=== PATIENT | female | born 1940 | race Caucasian/White ===

== ENCOUNTER 2020-12-20 15:46 | Outpatient (REF) | payer MEDICARE, SELFPAY ==
[2020-12-20 18:41] LABS: Iron 14 ug/dL (50-170); Total Iron Binding Capacity 378 ug/dL (250-450); Transferrin Sat 4 % (15-50)
[2020-12-20 19:05] LABS: Vitamin D 25 Total 36.9 ng/mL (30-100)
[2020-12-20 19:07] LABS: Anion Gap 7.6 mmol/L (3-11); BUN 17 mg/dL (7-18); CO2 28.4 mmol/L (21.0-32.0); CREATININE 1.1 mg/dL (0.55-1.02); Calcium 9.4 mg/dL (8.5-10.1); Chloride 107 mmol/L (98-107); Estimated GFR 47.91 (mL/min/1.73m2); Ferritin 9 ng/mL (8-252); Glucose 82 mg/dL (74-106); Magnesium 1.8 mg/dL (1.8-2.4); Potassium 4.6 mmol/L (3.5-5.1); Sodium 143 mmol/L (136-145); TSH (W/Ref FT4) 1.83 uIU/mL (0.36-3.74); Vitamin B12 292 pg/mL (193-986)
[2020-12-20 19:13] LABS: Abs Immature Grans 0.01 10^3/uL (0.0-0.06); Absolute Basophil Count 0.03 10^3/uL (0.0-0.2); Absolute Eosinophil Count 0.15 10^3/uL (0.0-0.7); Absolute Monocyte Count 0.75 10^3/uL (0.1-0.8); Basophils % 0.6; Eosinophils % 2.9; HCT 32.1 % (36.0-46.0); HGB 9.3 g/dL (11.2-15.7); Immature Grans % 0.2; Lymphocytes % 17.5; MCH 22.9 pg (27.0-33.0); MCV 79.1 fL (80-95); MPV 11.6 fL (8.0-11.0); Monocytes % 14.6; Neutrophils % 64.2; Nucleated RBC 0 %; Platelet Count 281 10^3/uL (130-400); RBC 4.06 10^6/uL (3.93-5.22); RDW 20.4 % (11.7-14.6); RDW-SD 57.8 fL; WBC 5.14 10^3/uL (4.4-10.8)
== END 2020-12-20 15:47 | disposition home or self-care (01) ==
LOC: LBN 15:46
PROVIDERS: Visit Provider Internal Medicine
DX: D64.9 Anemia, unspecified (principal); G20 Parkinson's disease; F33.40 Major depressive disorder, recurrent, in remission, unspecified; F02.81 Dementia in other diseases classified elsewhere, unspecified severity, with behavioral disturbance
CPT/HCPCS: 80048; 82306; 82607; 82728; 82746; 83036; 83540; 83550; 83735; 84443; 85025

== ENCOUNTER 2021-01-01 19:52 | Inpatient (IN) | payer OTHER, SELFPAY ==
[2021-01-01] VITALS (55 sets, daily range): BP systolic 101–203; BP diastolic 37–140; PULSE 63–95; RESP 12–25; TEMP 36.8; O2SAT 96–100
--- NOTE | 2021-01-01 19:45 | RT.EKG_ITS ---
APPROVED REPORT Exam: Resting ECG Reason for Exam: peter Patient Location: E HR:84 bpm ECG Measurements Heart Rate 84 AXIS HI 143 P 72 QRSd 80 QRS 56 QT 380 T 37 QTc 449 Conclusion Sinus rhythm...normal P axis, V-rate 60- 99 Physician: no stemi, intervals stable
--- NOTE | 2021-01-01 20:00 | DI.CT_ITS ---
Exam(s) CT HEAD CERV SPINE FACIAL WO EXAM: CT HEAD CERV SPINE FACIAL WO CLINICAL HISTORY: altered. TECHNIQUE: Imaging Protocol: Axial computed tomography images with coronal and sagittal reformatted images were created and reviewed COMPARISON: No exams were available for comparison FINDINGS: CT BRAIN: There are no skull fractures nor fluid in the visualized paranasal sinuses. There is no evidence of intracranial hemorrhage, mass effect, or shift of midline structures. There are no extra-axial fluid collections. There is no blood within the ventricular system nor within the basal cisterns. Size of the lateral ventricles is slightly prominent but commensurate with the size of the overlying cortical sulci. Vascular calcification is noted in both vertebral arteries at the skull base as well as within the internal carotid arteries. There is periventricular hypodensity consistent with chronic small vessel disease. Also small nonacu te appearing periventricular lacunar infarcts left side. CT MAXILLOFACIAL BONES: There is no evidence of facial fractures nor fluid in the visualized paranasal sinuses. there is no evidence of orbital blowout fracture. Patient is noted to be intubated. Also NG tube in place CT CERVICAL SPINE: There is no evidence of fracture nor listhesis. No significant prevertebral soft tissue swelling. N o facet malalignment evident. No significant osseous lesions evident. There is fusion of C 6 and C7 vertebral bodies anteriorly and there is also fusion of the facet joint s bilaterally at this level. In addition there is multilevel disc space narrowing at C4-5 and C5-6 l evels. Also seen is 7-T1. IMPRESSION: No acute intracranial findings on this noninfused CT scan of the brain. No evidence of facial nor orbital blowout fractures. No evidence of cervical spine fracture, malalignment, nor acute compromise of the cervical spinal can al. Chronic degenerative disc disease and degenerative changes noted in the cervical spine but no fr actures. Study 1st read by [facility] RADIATION DOSE DELIVERED: 1,861.06mGy.cm Total DLP DATA REPOSITORY: All CT scans at this facility are submitted to the National Radiology Data Registry (NRDR) Dose Index Registry (DIR) with the [employer] (A[employer]). RADIATION OPTIMIZATION: All CT scans at this facility use at least one of these dose optimization te chniques: automated exposure control; mA and/or kV adjustment per patient size (includes targeted exa ms where dose is matched to clinical indication); or iterative reconstruction.
--- NOTE | 2021-01-01 20:07 | DI.RAD_ITS ---
Exam(s) XR PORTABLE CHEST AP POST LINE EXAM: XR PORTABLE CHEST AP POST LINE CLINICAL HISTORY: post intubation. TECHNIQUE: 2D digital imaging was performed. COMPARISON: No exams were available for comparison FINDINGS: Distal tip of the endotracheal tube in satisfactory position above the haroldo. There is an NG tube i n place. Its distal tip is beyond the field of view of this chest x-ray. Heart size is upper normal. The mediastinum is not widened. Right hemidiaphragm is significantly elevated. However, there are no obvious infiltrates nor pleural effusions. No pneumothorax. IMPRESSION: Elevated right hemidiaphragm. No acute pulmonary findings. Endotracheal tube is in satisfactory position. DATA REPOSITORY: RADIATION DOSE DELIVERED: All CT scans at this facility use at least one of these dose optimization techniques: automated exposure control; mA and/or kV adjustment per patient size (includes targeted e xams where dose is matched to clinical indication); or iterative reconstruction.
[2021-01-01 20:16] LABS: Source Nasal/Nares
[2021-01-01 20:21] LABS: Lactate 1.2 mmol/L (0.6-1.4)
[2021-01-01 20:22] LABS: Abs Immature Grans 0.07 10^3/uL (0.0-0.06); Absolute Basophil Count 0.03 10^3/uL (0.0-0.2); Absolute Eosinophil Count 0.12 10^3/uL (0.0-0.7); Absolute Lymphocyte Count 1.23 10^3/uL (1.2-3.4); Absolute Monocyte Count 0.74 10^3/uL (0.1-0.8); Absolute Neutrophil Count 4.17 10^3/uL (1.2-6.7); Basophils % 0.5; Eosinophils % 1.9; HCT 32.2 % (36.0-46.0); HGB 9.7 g/dL (11.2-15.7); Immature Grans % 1.1; Lymphocytes % 19.3; MCH 24.4 pg (27.0-33.0); MCHC 30.1 % (32.0-36.0); MCV 81.1 fL (80-95); MPV 10.7 fL (8.0-11.0); Monocytes % 11.6; Neutrophils % 65.6; Nucleated RBC 0 %; Platelet Count 248 10^3/uL (130-400); RBC 3.97 10^6/uL (3.93-5.22); RDW 20.7 % (11.7-14.6); RDW-SD 61.1 fL; WBC 6.36 10^3/uL (4.4-10.8)
[2021-01-01] MEDS: Etomidate 20 MG/10 ML VIAL IVP (20:25)
[2021-01-01] MEDS: Rocuronium 50 MG/5 ML SYR 100 MG IVP (20:26)
--- NOTE | 2021-01-01 20:31 | NUR.NOTE ---
Nursing Note: Successful intubation: 7.5 ET tube-22 at teeth. Audible breath sounds via ascultation, condensation in ET tube, Direct visualization observed. Oral-gastric tube placed: measured and secured- 55 at lip. SEE MAR FOR MEDICATION ADMINISTERED PRIOR TO INTUBATION.
[2021-01-01 20:46] LABS: Bilirubin Negative (Negative); Blood Negative (Negative); Clarity Clear (Clear); Glucose Negative (Negative); Ketones Trace mg/dL (Negative); Leukocyte Esterase Negative (Negative); Nitrite Negative (Negative); Specific Gravity >= 1.030 (1.005-1.025); Urobilinogen 0.2 EU/dL (Up TO 0.2)
[2021-01-01] MEDS: PROPOFOL 1,000 MG/100 ML BTL 10.7 MG (20:46)
--- NOTE | 2021-01-01 20:47 | NUR.NOTE ---
Nursing Note: Propofol started at 20:30.
[2021-01-01 20:53] LABS: Ammonia < 10 umol/L (11-32)
[2021-01-01 20:54] LABS: Troponin I < 0.05 ng/mL (<0.06)
[2021-01-01 20:55] LABS: ALT 8 U/L (14-59); AST 11 U/L (15-37); Albumin 3.2 g/dL (3.4-5.0); Alkaline Phosphatase 100 U/L (46-116); Anion Gap 7.4 mmol/L (3-11); BUN 16 mg/dL (7-18); Bilirubin, Total 0.4 mg/dL (0.2-1.0); CO2 27.6 mmol/L (21.0-32.0); CREATININE 1.2 mg/dL (0.55-1.02); Calcium 9.4 mg/dL (8.5-10.1); Chloride 107 mmol/L (98-107); Estimated GFR 43.34 (mL/min/1.73m2); Glucose 163 mg/dL (74-106); Potassium 3.7 mmol/L (3.5-5.1); Sodium 142 mmol/L (136-145); TSH (W/Ref FT4) 1.84 uIU/mL (0.36-3.74); Total Protein 6.4 g/dL (6.4-8.2)
[2021-01-01 20:57] LABS: Epithelial Cells Moderate HPF (Negative)
[2021-01-01 20:58] LABS: Bacteria Rare HPF (Negative); C & S Indicated? No/Sq. Contamination; Crystals Negative HPF (Negative); Mucus Heavy (Negative)
[2021-01-01 21:01] LABS: BE 0 mmol/L (-2-3); HCO3 25 mmol/L (22-26); pCO2 41 mmHg (35-45); pO2 170 mmHg (80-105)
[2021-01-01] MEDS: Normal Saline 1,000 ML 150 ML IV (21:03)
[2021-01-01 21:04] LABS: Site Left Radial; sO2 > 99 % (95-98)
[2021-01-01 21:05] LABS: FIO2 40 %
--- NOTE | 2021-01-01 21:17 | W.ED.GENAD ---
Discharge Plan Disposition Patient Disposition: [facility] INPATIENT Condition: Serious Discharge Details Clinical Impression: Altered mental status, Respiratory failure, Drug-induced encephalopathy Primary Care Provider: Unknown,Unknown ED Provider: Anatoly Samson Home Meds and New Rx's Prescriptions: No Action olanzapine [Zyprexa] 10 mg Tablet 10 mg PO QHS RF: 0 quetiapine [Seroquel] 200 mg Tablet 200 mg PO QHS RF: 0 cyanocobalamin (vitamin B-12) 1,000 mcg Tablet 1,000 mcg PO DAILY RF: 0 acetaminophen 650 mg Tablet 650 mg PO Q6H PRN (Reason: Fever Or Pain) RF: 0 ascorbic acid (vitamin C) 500 mg Tablet 500 mg PO BID RF: 0 carboxymethylcellulose sodium [Refresh Tears] 0.5 % Drops 1 drp OPHTHALMIC (EYE) HS RF: 0 ferrous sulfate 325 mg (65 mg iron) Tablet 325 mg PO BID RF: 0 folic acid 1 mg Tablet 1 mg PO DAILY RF: 0 lorazepam [Ativan] 1 mg Tablet 1 mg PO TID RF: 0 carbidopa-levodopa 25-100 mg Tablet 1 tab PO TID RF: 0 duloxetine 60 mg Capsule, Delayed Rel Sprinkle 60 mg PO BID RF: 0 Medical Decision Making 80-year-old female with a past medical history of Parkinson's, dementia, who currently resides at the [facility], presents today for evaluation of altered mental status. The [facility] states that after she was given her nighttime medication she became altered and lethargic and hypoxic. Oxygenation was in the 70s. EMS started her on 15 L nonrebreather which brought her up to the high 90s, and brought her in for further assessment. Glucose levels unremarkable. GCS was 9 upon arrival. EMS gives no additional history. Patient is otherwise unresponsive with no other complaints at this time. Physical exam demonstrates a GCS of 9, no gag reflex is present, patient is able to move all extremities, I cannot appreciate any other focal neurologic deficits at this time, however the patient is notably altered. With the patient absent gag reflex, and GCS of 9 there is a notable indication for intubation. She seems to be saturating well on the nonrebreather at this time. I did contact the patient's and discussed the patient wishes for heroic measures. Patient's paperwork as well as her both state the desire for intubation if indicated. Patient was intubated without complication. Differential includes metabolic encephalitis, less likely stroke, or iatrogenic cause from his medications. We will get a CT scan of the head, evaluate for these etiologies, monitor closely and reassess. Patient has no nuchal rigidity, no fever, symptoms appear inconsistent with meningitis or infectious encephalitis at this time. 10:54 PM Laboratory work-up is returned relatively unremarkable, no white count bandemia or left shift. Hemoglobin is 9.7, does not appear to be an acute change from previous lab. ABG stable, electrolytes normal, creatinine 1.2, GFR 43, ammonia level negative, troponin normal, thyroid function good. Urinalysis shows no clear evidence of urinary tract infection. Moderate epithelial cells are present with 5-10 WBCs. No leuk esterase, negative nitrites. ABG does not show significant elevation of PCO2. Suspect that the patient's initial hypoxemia was secondary to encephalopathy and obtundation. X-ray shows no evidence of pneumonia or other abnormality, and oxygenation has been notably stable here post intubation. CT scan of the head is negative for acute process, no evidence of stroke or fracture. At this time suspect iatrogenic cause of the patient's encephalopathy, likely medication related. Patient remained stable on ventilator and with sedation. Covid test negative. Will recommend admission for continued evaluation monitoring and management. EKG stable, troponin negative. 11:41 PM Discussed the case with the hospitalist Dr. Vazquez, he agrees with the assessment and plan. I will place admission orders on his behalf. I have extensively reviewed the treatment plan with the patient. I have addressed all patient concerns at this time. I have also discussed the plan with the admitting physician and they agree with the current assessment and plan and have agreed to assume responsibility for the patient. All parties demonstrate verbal understanding and agreement with our assessment and plan at this time. The documentation in this chart was dictated using [employer] dictation software. Please excuse any dictation errors. FINDINGS: Endotracheal tube tip 2.6 cm above the haroldo. Enteric tube below the diaphragm projecting to the right of midline tip not visualized Elevated right hemidiaphragm Lungs: No consolidation. Pleural spaces: No pleural effusion. No pneumothorax. Heart/Mediastinum: Mildly tortuous aorta. No cardiomegaly. Bones/joints: Unremarkable. IMPRESSION: Tubes as described Elevated right hemidiaphragm. No focal consolidation Thank you for allowing us to participate in the care of your patient. Dictated and Authenticated by: Stan Thapa MD 01/01/2021 10:26 PM Eastern Time ([place] & [place]) FINDINGS: Brain: Chronic left basal ganglia lacunar infarctions No hemorrhage. Mild white matter disease. No mass effect. Cerebral ventricles: No ventriculomegaly. Paranasal sinuses: Visualized sinuses are unremarkable. No fluid levels. Mastoid air cells: Visualized mastoid air cells are well aerated. Bones/joints: Unremarkable. No acute fracture. Soft tissues: Unremarkable. IMPRESSION: No acute intracranial hemorrhage FINDINGS: Orbital cavity: Orbits are normal. Globes are unremarkable. Bones/joints: No acute fracture. Paranasal sinuses: Minimal mucosal thickening No air-fluid levels. Soft tissues: Calcifications in the right paranasal tissues IMPRESSION: No acute fracture noted FINDINGS: Bones/joints: No acute fracture. Loss of cervical lordosis is presumably on a degenerative basis. Prior fusion at C6-C7. Discs/Spinal canal/Neural foramina: No significant spinal canal stenosis. Right sided foraminal stenosis at C2-C3, C3-C4 and C4-C5 Lungs: Lung apices are grossly clear Soft tissues: Limited evaluation of the prevertebral soft tissues are secondary to nasogastric intubation. Endotracheal tube partially visualized IMPRESSION: No acute cervical fracture noted Thank you for allowing us to participate in the care of your patient. Dictated and Authenticated by: Stan Thapa MD 01/01/2021 10:15 PM Eastern Time ([place] & [place]) HPI General Date/Time Provider Initiated Documentation: 01/01/21 20:53. HPI Narrative: 80-year-old female with a past medical history of Parkinson's, dementia, who currently resides at the [facility], presents today for evaluation of altered mental status. The [facility] states that after she was given her nighttime medication she became altered and lethargic and hypoxic. Oxygenation was in the 70s. EMS started her on 15 L nonrebreather which brought her up to the high 90s, and brought her in for further assessment. Glucose levels unremarkable. GCS was 9 upon arrival. EMS gives no additional history. Patient is otherwise unresponsive with no other complaints at this time. Related Data Home Medications Medication Instructions Recorded Confirmed acetaminophen 650 mg PO Q6H PRN 01/01/21 01/01/21 ascorbic acid (vitamin C) 500 mg PO BID 01/01/21 01/01/21 carbidopa-levodopa 1 tab PO TID 01/01/21 01/01/21 carboxymethylcellulose sodium 1 drp OPHTHALMIC (EYE) HS 01/01/21 01/01/21 [Refresh Tears] cyanocobalamin (vitamin B-12) 1,000 mcg PO DAILY 01/01/21 01/01/21 duloxetine 60 mg PO BID 01/01/21 01/01/21 ferrous sulfate 325 mg PO BID 01/01/21 01/01/21 folic acid 1 mg PO DAILY 01/01/21 01/01/21 lorazepam [Ativan] 1 mg PO TID 01/01/21 01/01/21 olanzapine [Zyprexa] 10 mg PO QHS 01/01/21 01/01/21 quetiapine [Seroquel] 200 mg PO QHS 01/01/21 01/01/21 Allergies Allergy/AdvReac Type Severity Reaction Status Date / Time clarithromycin Allergy Unverified 01/01/21 20:54 mold Allergy Unverified 01/01/21 20:54 General Stated Complaint: RespSymp ESPERANZA: 2 Review of Systems All systems reviewed & are unremarkable except as noted in HPI and below PFSH Social History Smoking/Tobacco Use Status: Unknown Smoking risk assessment performed?: Yes Additional Social history: unable to assess. Exam Narrative Exam Narrative: 1.Const: Well-nourished, Well-developed, appearing stated age 2.Eyes: PERRL, no conjunctival injection, and symmetrical lids. 3.ENT: Atraumatic external nose and ears. Moist MM. Neck: Symmetric, trachea midline, No thyromegaly. 4.CVS: +S1/S2, No murmurs or gallops. Peripheral pulses 2+ and equal in all extremities. Brisk capillary refill in all extremities. 5.RESP: Minimal respiratory effort, no significant crackles or rhonchi. Diminished breath sounds throughout. No wheezes. 6.GI: Soft, Nontender/Nondistended, No hepatosplenomegaly. No guarding or rebound. 7.MSK: Normocephalic/Atraumatic, Extremities w/o deformity or ttp No cyanosis or clubbing, patient is able to move both upper and lower extremities with significant painful stimulation. 8.Skin: Warm, Dry. No rashes or lesions. No decubitus ulcers. 9.Neuro: GCS is 9, secondary to incomprehensible sounds, localizing to pain, no eye movements otherwise but is open to painful stimuli. No gag reflex present on exam with tongue depressor Course Vital Signs Vital signs: Vital Signs Temperature 36.8 C 01/01/21 19:54 Pulse 78 01/01/21 19:54 Respiratory Rate 16 01/01/21 19:54 Blood Pressure 125/55 L 01/01/21 19:54 Pulse Oximetry 100 01/01/21 19:54 Temperature 36.8 C 01/01/21 19:54 Temperature Source Tympanic 01/01/21 19:54 Pulse 74 01/01/21 21:11 Pulse 76 01/01/21 21:11 Respiratory Rate 15 01/01/21 21:11 Respiratory Effort 01/01/21 20:08 Respiratory Depth Shallow 01/01/21 20:08 Respiratory Pattern Normal 01/01/21 20:08 Blood Pressure 143/66 H 01/01/21 21:11 Blood Pressure Mean 82 01/01/21 21:11 Blood Pressure Position Sitting 01/01/21 19:54 Pulse Oximetry 100 01/01/21 21:11 Respiratory End-tidal CO2 38 01/01/21 20:36 Oxygen Delivery Method Non-Rebreather 01/01/21 19:54 Lab/Test Results Lab/Test Results: 01/01/21 20:49 Nasopharynx Influenza Types A,B Antigen - Pending 01/01/21 20:07 Blood Blood Culture - Pending 01/01/21 20:07 Blood Blood Culture - Pending Laboratory Tests Range/Units 01/01/21 01/01/21 01/01/21 20:10 20:10 20:10 WBC (4.4-10.8) 10^3/uL RBC (3.93-5.22) 10^6/uL Hgb (11.2-15.7) g/dL Hct (36.0-46.0) % MCV (80-95) fL MCH (27.0-33.0) pg MCHC (32.0-36.0) % RDW (11.7-14.6) % Plt Count (130-400) 10^3/uL MPV (8.0-11.0) fL Immature Gran % Neutrophils % Lymphocytes % Monocytes % Eosinophils % Basophils % Nucleated RBC % % Absolute Neutrophils (1.2-6.7) 10^3/uL Absolute Lymphocytes (1.2-3.4) 10^3/uL Absolute Monocytes (0.1-0.8) 10^3/uL Absolute Eosinophils (0.0-0.7) 10^3/uL Absolute Basophils (0.0-0.2) 10^3/uL ABG Sample Site ABG pH (7.35-7.45) ABG pCO2 (35-45) mmHg ABG pO2 (80-105) mmHg ABG HCO3 (22-26) mmol/L ABG Total CO2 (23-27) mmol/L ABG O2 Saturation (95-98) % ABG Base Excess (-2-3) mmol/L VBG Lactate (0.6-1.4) mmol/L Oxygen Liter Flow L FiO2 % Sodium (136-145) mmol/L Potassium (3.5-5.1) mmol/L Chloride (98-107) mmol/L Carbon Dioxide (21.0-32.0) mmol/L Anion Gap (3-11) mmol/L BUN (7-18) mg/dL Creatinine (0.55-1.02) mg/dL Estimated GFR/1.73 m2 (mL/min/1.73m2) Glucose (74-106) mg/dL Calcium (8.5-10.1) mg/dL Total Bilirubin (0.2-1.0) mg/dL AST (15-37) U/L ALT (14-59) U/L Alkaline Phosphatase (46-116) U/L Ammonia (11-32) umol/L < 10 L Troponin I (<0.06) ng/mL < 0.05 Total Protein (6.4-8.2) g/dL Albumin (3.4-5.0) g/dL TSH (0.36-3.74) uIU/mL Urine Color (Yellow) Urine Clarity (Clear) Urine pH (5-8) Ur Specific Hardy (1.005-1.025) Urine Protein (Negative) mg/dL Urine Ketones (Negative) mg/dL Urine Blood (Negative) Urine Nitrite (Negative) Urine Bilirubin (Negative) Urine Urobilinogen (Up TO 0.2) EU/dL Ur Leukocyte Esterase (Negative) Urine RBC (0-2) HPF Urine WBC (0-5) HPF Ur Epithelial Cells (Negative) HPF Urine Crystals (Negative) HPF Urine Bacteria (Negative) HPF Urine Mucus (Negative) Ur Culture Indicated? Urine Glucose (Negative) mg/dL COVID-19 Source Nasal/Nares Range/Units 01/01/21 01/01/21 01/01/21 20:10 20:10 20:10 WBC (4.4-10.8) 10^3/uL 6.36 RBC (3.93-5.22) 10^6/uL 3.97 Hgb (11.2-15.7) g/dL 9.7 L Hct (36.0-46.0) % 32.2 L MCV (80-95) fL 81.1 MCH (27.0-33.0) pg 24.4 L MCHC (32.0-36.0) % 30.1 L RDW (11.7-14.6) % 20.7 H Plt Count (130-400) 10^3/uL 248 MPV (8.0-11.0) fL 10.7 Immature Gran % 1.1 Neutrophils % 65.6 Lymphocytes % 19.3 Monocytes % 11.6 Eosinophils % 1.9 Basophils % 0.5 Nucleated RBC % % 0 Absolute Neutrophils (1.2-6.7) 10^3/uL 4.17 Absolute Lymphocytes (1.2-3.4) 10^3/uL 1.23 Absolute Monocytes (0.1-0.8) 10^3/uL 0.74 Absolute Eosinophils (0.0-0.7) 10^3/uL 0.12 Absolute Basophils (0.0-0.2) 10^3/uL 0.03 ABG Sample Site ABG pH (7.35-7.45) ABG pCO2 (35-45) mmHg ABG pO2 (80-105) mmHg ABG HCO3 (22-26) mmol/L ABG Total CO2 (23-27) mmol/L ABG O2 Saturation (95-98) % ABG Base Excess (-2-3) mmol/L VBG Lactate (0.6-1.4) mmol/L 1.2 Oxygen Liter Flow L FiO2 % Sodium (136-145) mmol/L 142 Potassium (3.5-5.1) mmol/L 3.7 Chloride (98-107) mmol/L 107 Carbon Dioxide (21.0-32.0) mmol/L 27.6 Anion Gap (3-11) mmol/L 7.4 BUN (7-18) mg/dL 16 Creatinine (0.55-1.02) mg/dL 1.2 H Estimated GFR/1.73 m2 (mL/min/1.73m2) 43.34 Glucose (74-106) mg/dL 163 H Calcium (8.5-10.1) mg/dL 9.4 Total Bilirubin (0.2-1.0) mg/dL 0.4 AST (15-37) U/L 11 L ALT (14-59) U/L 8 L Alkaline Phosphatase (46-116) U/L 100 Ammonia (11-32) umol/L Troponin I (<0.06) ng/mL Total Protein (6.4-8.2) g/dL 6.4 Albumin (3.4-5.0) g/dL 3.2 L TSH (0.36-3.74) uIU/mL 1.84 Urine Color (Yellow) Urine Clarity (Clear) Urine pH (5-8) Ur Specific Hardy (1.005-1.025) Urine Protein (Negative) mg/dL Urine Ketones (Negative) mg/dL Urine Blood (Negative) Urine Nitrite (Negative) Urine Bilirubin (Negative) Urine Urobilinogen (Up TO 0.2) EU/dL Ur Leukocyte Esterase (Negative) Urine RBC (0-2) HPF Urine WBC (0-5) HPF Ur Epithelial Cells (Negative) HPF Urine Crystals (Negative) HPF Urine Bacteria (Negative) HPF Urine Mucus (Negative) Ur Culture Indicated? Urine Glucose (Negative) mg/dL COVID-19 Source Range/Units 01/01/21 01/01/21 20:37 21:00 WBC (4.4-10.8) 10^3/uL RBC (3.93-5.22) 10^6/uL Hgb (11.2-15.7) g/dL Hct (36.0-46.0) % MCV (80-95) fL MCH (27.0-33.0) pg MCHC (32.0-36.0) % RDW (11.7-14.6) % Plt Count (130-400) 10^3/uL MPV (8.0-11.0) fL Immature Gran % Neutrophils % Lymphocytes % Monocytes % Eosinophils % Basophils % Nucleated RBC % % Absolute Neutrophils (1.2-6.7) 10^3/uL Absolute Lymphocytes (1.2-3.4) 10^3/uL Absolute Monocytes (0.1-0.8) 10^3/uL Absolute Eosinophils (0.0-0.7) 10^3/uL Absolute Basophils (0.0-0.2) 10^3/uL ABG Sample Site Left Radial ABG pH (7.35-7.45) 7.40 ABG pCO2 (35-45) mmHg 41 ABG pO2 (80-105) mmHg 170 H ABG HCO3 (22-26) mmol/L 25 ABG Total CO2 (23-27) mmol/L ABG O2 Saturation (95-98) % > 99 H ABG Base Excess (-2-3) mmol/L 0 VBG Lactate (0.6-1.4) mmol/L Oxygen Liter Flow L CMV VT360/R15/P5 FiO2 % 40 Sodium (136-145) mmol/L Potassium (3.5-5.1) mmol/L Chloride (98-107) mmol/L Carbon Dioxide (21.0-32.0) mmol/L Anion Gap (3-11) mmol/L BUN (7-18) mg/dL Creatinine (0.55-1.02) mg/dL Estimated GFR/1.73 m2 (mL/min/1.73m2) Glucose (74-106) mg/dL Calcium (8.5-10.1) mg/dL Total Bilirubin (0.2-1.0) mg/dL AST (15-37) U/L ALT (14-59) U/L Alkaline Phosphatase (46-116) U/L Ammonia (11-32) umol/L Troponin I (<0.06) ng/mL Total Protein (6.4-8.2) g/dL Albumin (3.4-5.0) g/dL TSH (0.36-3.74) uIU/mL Urine Color (Yellow) Yellow Urine Clarity (Clear) Clear Urine pH (5-8) 6.0 Ur Specific Hardy (1.005-1.025) >= 1.030 H Urine Protein (Negative) mg/dL 30 H Urine Ketones (Negative) mg/dL Trace H Urine Blood (Negative) Negative Urine Nitrite (Negative) Negative Urine Bilirubin (Negative) Negative Urine Urobilinogen (Up TO 0.2) EU/dL 0.2 Ur Leukocyte Esterase (Negative) Negative Urine RBC (0-2) HPF 3-5 H Urine WBC (0-5) HPF 5-10 Ur Epithelial Cells (Negative) HPF Moderate Urine Crystals (Negative) HPF Negative Urine Bacteria (Negative) HPF Rare Urine Mucus (Negative) Heavy Ur Culture Indicated? No/Sq. Contamination Urine Glucose (Negative) mg/dL Negative COVID-19 Source Critical Care Time Critical Care Time Critical Care Time: Yes Total Critical Care Time: 45 Attestation: Upon my evaluation, this patient had a high probability of imminent or life-threatening deterioration, which required my direct attention, intervention, and personal management. I have personally provided 45 minutes of critical care time exclusive of time spent on separately billable procedures. Time includes review of laboratory data, radiology results, discussion with consultants, and monitoring for potential decompensation. Interventions were performed as documented.
[2021-01-01 21:22] LABS: COVID-19 PCR Negative (Negative)
--- NOTE | 2021-01-01 22:16 | DI.VRAD_ITS ---
PROCEDURE INFORMATION: Exam: CT Head Without Contrast Exam date and time: 01/01/2021 9:43 PM Age: 80 years old Clinical indication: Patient HX: Altered, intubated TECHNIQUE: Imaging protocol: Computed tomography of the head without contrast. Radiation optimization: All CT scans at this facility use at least one of these dose optimization techniques: automated exposure control; mA and/or kV adjustment per patient size (includes targeted exams where dose is matched to clinical indication); or iterative reconstruction. COMPARISON: CR XR PORTABLE CHEST AP POST LINE 01/01/2021 8:58 PM FINDINGS: Brain: Chronic left basal ganglia lacunar infarctions No hemorrhage. Mild white matter disease. No mass effect. Cerebral ventricles: No ventriculomegaly. Paranasal sinuses: Visualized sinuses are unremarkable. No fluid levels. Mastoid air cells: Visualized mastoid air cells are well aerated. Bones/joints: Unremarkable. No acute fracture. Soft tissues: Unremarkable. IMPRESSION: No acute intracranial hemorrhage PROCEDURE INFORMATION: Exam: CT Maxillofacial Without Contrast Exam date and time: 01/01/2021 9:43 PM Age: 80 years old Clinical indication: Patient HX: Altered, intubated TECHNIQUE: Imaging protocol: Computed tomography images of the face without contrast. Radiation optimization: All CT scans at this facility use at least one of these dose optimization techniques: automated exposure control; mA and/or kV adjustment per patient size (includes targeted exams where dose is matched to clinical indication); or iterative reconstruction. COMPARISON: CR XR PORTABLE CHEST AP POST LINE 01/01/2021 8:58 PM FINDINGS: Orbital cavity: Orbits are normal. Globes are unremarkable. Bones/joints: No acute fracture. Paranasal sinuses: Minimal mucosal thickening No air-fluid levels. Soft tissues: Calcifications in the right paranasal tissues IMPRESSION: No acute fracture noted PROCEDURE INFORMATION: Exam: CT Cervical Spine Without Contrast Exam date and time: 01/01/2021 9:43 PM Age: 80 years old Clinical indication: Patient HX: Altered, intubated TECHNIQUE: Imaging protocol: Computed tomography images of the cervical spine without contrast. Radiation optimization: All CT scans at this facility use at least one of these dose optimization techniques: automated exposure control; mA and/or kV adjustment per patient size (includes targeted exams where dose is matched to clinical indication); or iterative reconstruction. COMPARISON: CR XR PORTABLE CHEST AP POST LINE 01/01/2021 8:58 PM FINDINGS: Bones/joints: No acute fracture. Loss of cervical lordosis is presumably on a degenerative basis. Prior fusion at C6-C7. Discs/Spinal canal/Neural foramina: No significant spinal canal stenosis. Right sided foraminal stenosis at C2-C3, C3-C4 and C4-C5 Lungs: Lung apices are grossly clear Soft tissues: Limited evaluation of the prevertebral soft tissues are secondary to nasogastric intubation. Endotracheal tube partially visualized IMPRESSION: No acute cervical fracture noted Dictated and Authenticated by: Stan Thapa MD. Ordering:TIGRE Ledbetter MD
--- NOTE | 2021-01-01 22:26 | DI.VRAD_ITS ---
PROCEDURE INFORMATION: Exam: XR Chest Exam date and time: 01/01/2021 8:17 PM Age: 80 years old Clinical indication: Other: Post intubation TECHNIQUE: Imaging protocol: XR of the chest. Views: 1 view. COMPARISON: No relevant prior studies available. FINDINGS: Endotracheal tube tip 2.6 cm above the haroldo. Enteric tube below the diaphragm projecting to the right of midline tip not visualized Elevated right hemidiaphragm Lungs: No consolidation. Pleural spaces: No pleural effusion. No pneumothorax. Heart/Mediastinum: Mildly tortuous aorta. No cardiomegaly. Bones/joints: Unremarkable. IMPRESSION: Tubes as described Elevated right hemidiaphragm. No focal consolidation Dictated and Authenticated by: Stan Thapa MD. Ordering:TIGRE Ledbetter MD
--- NOTE | 2021-01-01 23:24 | HPE_ITS ---
Date of service: 01/01/21 Time of Service: 23:24 Assessment and Plan Assessment and plan (1) Respiratory failure: Status: Acute Assessment and plan: Continue mechanical ventilation while allowing her se dating medications to wear off. Use Lovenox for DVT prophylaxis and Protonix for GI prophylaxis. Consult with pulmonary/critical care medicine in the morning. Avoid IV fluids as the patient is not exhibiting signs of dehydration or azotemia. CC time 45 minutes including discussion w/ ER attending, Dr. Samson and reviewing chart, putting in orders, examination of patient and discussion w/ nursing regarding goals of care. Qualifiers: Chronicity: acute Respiratory failure complication: hypoxia Qualified Code(s): J96.01 - Acute respiratory failure with hypoxia (2) Altered mental status: Status: Acute Assessment and plan: Presumed secondary to medications as there is no evidence of [employer] trauma and no focal signs of seizure or focal signs of stroke. Qualifiers: Altered mental status type: coma Coma depth: [place] coma 3-8 Coma timing: at arrival to emergency department Qualified Code(s): R40.2432 - [place] coma scale score 3-8, at arrival to emergency department (3) Drug-induced encephalopathy: Status: Acute Assessment and plan: Avoid sedatives and continue supportive care with mechanical ventilation. If no improvement by morning consider further [employer]BER[employer] evaluation. Patient was put on Diprivan drip by ER post intubation. I have asked nursing to keep very light sedations i.e. RASS 0 to -1 History of Present Illness History of Present Illness Chief Complaint: acute hypoxic respiratory failure Narrative: 80-year-old white female resident of the [facility] in [place] who has a past medical history of Parkinson's disease, dementia who was brought to the emergency department from the [facility] after being found to be hypoxic and lethargic. Oxygen saturation was stated to be in the 70s and patient was started on 15 L nonrebreather mask by EMS and the patient's oxygen saturation came up into the high 90s. On arrival to emergency department her GCS score was 9 the patient was unresponsive. Per ER physicians evaluation patient had no gag reflex but will withdraw her extremities to noxious stimulation. She seemed to be holding her oxygen saturation on a nonrebreather mask and her GCS score remained 9. Patient's was contacted who indicated that the patient would want intubation and mechanical ventilation if needed. Because of her altered mental status and inability to protect her airway and ongoing hypoxic respiratory failure patient was intubated without complications by the ER physician. Presumed cause of her acute respiratory failure and hypoxemia is medication induced. Patient takes a number of medications for her dementia as well as her parkinsonism. She is on duloxetine, lorazepam, Zyprexa, Seroquel, carbidopa/levodopa. CT of the head without contrast showed no acute intracranial hemorrhage. She has chronic left basal ganglier lacunar infarcts and mild white matter disease but no mass-effect or hemorrhage. No ventriculomegaly. Paranasal sinuses showed no fluid air levels. Soft tissues were unremarkable. Orbital cavity showed no fractures. CT of the neck showed no cervical fractures. 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 Post intubation chest x-ray showed ET tip at 2.6 cm above the haroldo and the enteric tube was below the diaphragm projecting to the right of midline. Lung showed no consolidation and there is no pleural effusion no pneumothorax and no cardiomegaly. Routine labs include a CBC that shows a stable chronic anemia with a hemoglobin 9.7 g, hematocrit 32%, platelet count of 248,000 with no leukocytosis. CMP shows a mildly elevated creatinine 1.2 glucose 163, LFTs normal. Troponin I less than 0.05 and TSH 1.84. Blood gas post intubation demonstrated pH 7.40 PCO2 41 PO2 170 bicarbonate 25 O2 saturation greater than 8%. She reportedly was on assist control with tidal volume of 360 mL respiratory rate set at 15 with 5 cm of PEEP. Patient be admitted to the intensive care unit for treatment acute hypoxic re spiratory failure secondary to sedating medications. Pulmonary/critical care medicine consult be obtained in the morning. Patient be placed on DVT and GI prophylaxis. As the patient is not showing laboratory evidence of any dehydration/prerenal azotemia and her creatinine is at her baseline do not feel that she needs any IV fluids and avoidance of any excess volume would assist with weaning and extubation. Her nasal PCR for SARS-CoV-2 was negative. Review of Systems Unobtainable due to mental status [facility] Social History Smoking/Tobacco Use Status: Unknown Smoking risk assessment performed?: Yes Additional Social history: unable to assess. Meds Allergies and Home Medications Allergies Allergy/AdvReac Type Severity Reaction Status Date / Time clarithromycin Allergy Unverified 01/01/21 20:54 mold Allergy Unverified 01/01/21 20:54 Home Medications Medication Instructions Recorded Confirmed Type acetaminophen 650 mg PO Q6H PRN 01/01/21 01/01/21 History ascorbic acid (vitamin C) 500 mg PO BID 01/01/21 01/01/21 History carbidopa-levodopa 1 tab PO TID 01/01/21 01/01/21 History carboxymethylcellulose sodium 1 drp OPHTHALMIC (EYE) HS 01/01/21 01/01/21 History [Refresh Tears] cyanocobalamin (vitamin B-12) 1,000 mcg PO DAILY 01/01/21 01/01/21 History duloxetine 60 mg PO BID 01/01/21 01/01/21 History ferrous sulfate 325 mg PO BID 01/01/21 01/01/21 History folic acid 1 mg PO DAILY 01/01/21 01/01/21 History lorazepam [Ativan] 1 mg PO TID 01/01/21 01/01/21 History olanzapine [Zyprexa] 10 mg PO QHS 01/01/21 01/01/21 History quetiapine [Seroquel] 200 mg PO QHS 01/01/21 01/01/21 History Exam Const General: lethargic Nutritional Appearance: average body habitus Orientation: obtunded Limitations: altered mental status [facility] Head: normal to inspection, no palpable skull fracture, normocephalic and atraumatic Ears: external ears normal General nose exam: external nose normal Face and sinus: normal facial exam Mouth: oral mucosae normal Teeth and gingiva: poor dentition Eyes General: appearance normal, both eyes and all related structures Alignment and Position: alignment normal Periorbital: periorbital findings normal Eyelids: eyelids normal Conjunctivae: conjunctivae normal Sclera: sclerae normal Cornea: corneas normal Pupils: PERRL Neck Neck: normal visual inspection, no lymphadenopathy, trachea midline, supple and no JVD Thyroid: thyroid normal Carotids: normal carotid upstroke Lymphatic: no lymphadenopathy noted Chest Chest: normal inspection of the chest Resp Effort & Inspection: normal respiratory effort Auscultation: clear to auscultation bilaterally Cardio Jugular venous pressure: no JVD Palpation: normal PMI Rate: regular rate Rhythm: regular rhythm Heart Sounds: S1 normal, S2 normal and normal, physiologic split S2 Pulses: normal peripheral pulses GI Inspection: normal to inspection Palpation: soft and no hepatosplenomegaly Percussion: normal to percussion Auscultation: normal bowel sounds Skin General skin exam: no rashes or lesions noted and ecchymosis (left leg) Rashes: no rashes Neuro General: moves all extremities (withdraws to tactile stimulus) and patient obtunded Cranial Nerves: PERRL, tongue midline and abnormal gag reflex Cognition: abnormal cognition Motor: muscle tone normal throughout Plantar Reflexes: Downgoing: bilateral Pupils: Normal pupillary reactivity/response: bilateral and Dilated: bilateral Extrem General: normal to inspection, capillary refill normal, no clubbing, cyanosis or edema and no pedal edema Psych Appearance: grossly normal Mental Status: other Speech and Movement: other Mood: other Affect: other Attitude: other Thought Process: other Insight: other Judgment: other Other: patient is obtunded, she is sedated on Diprivan drip and her mental status can not be adequately assessed Results Labs Result diagrams: 01/01/21 20:10 01/01/21 20:10 Labs: Laboratory Results - last 24 hr 01/01/21 01/01/21 01/01/21 20:10 20:10 20:10 WBC RBC Hgb Hct MCV MCH MCHC RDW Plt Count MPV Immature Gran % Neutrophils % Lymphocytes % Monocytes % Eosinophils % Basophils % Nucleated RBC % Absolute Neutrophils Absolute Lymphocytes Absolute Monocytes Absolute Eosinophils Absolute Basophils ABG Sample Site ABG pH ABG pCO2 ABG pO2 ABG HCO3 ABG Total CO2 ABG O2 Saturation ABG Base Excess VBG Lactate Oxygen Liter Flow FiO2 Sodium Potassium Chloride Carbon Dioxide Anion Gap BUN Creatinine Estimated GFR/1.73 m2 Glucose Calcium Total Bilirubin AST ALT Alkaline Phosphatase Ammonia < 10 L Troponin I < 0.05 Total Protein Albumin TSH Urine Color Urine Clarity Urine pH Ur Specific [place] Urine Protein Urine Ketones Urine Blood Urine Nitrite Urine Bilirubin Urine Urobilinogen Ur Leukocyte Esterase Urine RBC Urine WBC Ur Epithelial Cells Urine Crystals Urine Bacteria Urine Mucus Ur Culture Indicated? Urine Glucose COVID-19 Source Nasal/Nares SARS-CoV-2 (PCR) Negative 01/01/21 01/01/21 01/01/21 20:10 20:10 20:10 WBC 6.36 RBC 3.97 Hgb 9.7 L Hct 32.2 L MCV 81.1 MCH 24.4 L MCHC 30.1 L RDW 20.7 H Plt Count 248 MPV 10.7 Immature Gran % 1.1 Neutrophils % 65.6 Lymphocytes % 19.3 Monocytes % 11.6 Eosinophils % 1.9 Basophils % 0.5 Nucleated RBC % 0 Absolute Neutrophils 4.17 Absolute Lymphocytes 1.23 Absolute Monocytes 0.74 Absolute Eosinophils 0.12 Absolute Basophils 0.03 ABG Sample Site ABG pH ABG pCO2 ABG pO2 ABG HCO3 ABG Total CO2 ABG O2 Saturation ABG Base Excess VBG Lactate 1.2 Oxygen Liter Flow FiO2 Sodium 142 Potassium 3.7 Chloride 107 Carbon Dioxide 27.6 Anion Gap 7.4 BUN 16 Creatinine 1.2 H Estimated GFR/1.73 m2 43.34 Glucose 163 H Calcium 9.4 Total Bilirubin 0.4 AST 11 L ALT 8 L Alkaline Phosphatase 100 Ammonia Troponin I Total Protein 6.4 Albumin 3.2 L TSH 1.84 Urine Color Urine Clarity Urine pH Ur Specific [place] Urine Protein Urine Ketones Urine Blood Urine Nitrite Urine Bilirubin Urine Urobilinogen Ur Leukocyte Esterase Urine RBC Urine WBC Ur Epithelial Cells Urine Crystals Urine Bacteria Urine Mucus Ur Culture Indicated? Urine Glucose COVID-19 Source SARS-CoV-2 (PCR) 01/01/21 01/01/21 20:37 21:00 WBC RBC Hgb Hct MCV MCH MCHC RDW Plt Count MPV Immature Gran % Neutrophils % Lymphocytes % Monocytes % Eosinophils % Basophils % Nucleated RBC % Absolute Neutrophils Absolute Lymphocytes Absolute Monocytes Absolute Eosinophils Absolute Basophils ABG Sample Site Left Radial ABG pH 7.40 ABG pCO2 41 ABG pO2 170 H ABG HCO3 25 ABG Total CO2 ABG O2 Saturation > 99 H ABG Base Excess 0 VBG Lactate Oxygen Liter Flow CMV VT360/R15/P5 FiO2 40 Sodium Potassium Chloride Carbon Dioxide Anion Gap BUN Creatinine Estimated GFR/1.73 m2 Glucose Calcium Total Bilirubin AST ALT Alkaline Phosphatase Ammonia Troponin I Total Protein Albumin TSH Urine Color Yellow Urine Clarity Clear Urine pH 6.0 Ur Specific [place] >= 1.030 H Urine Protein 30 H Urine Ketones Trace H Urine Blood Negative Urine Nitrite Negative Urine Bilirubin Negative Urine Urobilinogen 0.2 Ur Leukocyte Esterase Negative Urine RBC 3-5 H Urine WBC 5-10 Ur Epithelial Cells Moderate Urine Crystals Negative Urine Bacteria Rare Urine Mucus Heavy Ur Culture Indicated? No/Sq. Contamination Urine Glucose Negative COVID-19 Source SARS-CoV-2 (PCR) Last Vital Signs Temp 36.8 C 01/01/21 19:54 Pulse 67 01/01/21 23:01 Resp 15 01/01/21 23:10 BP 142/63 H 01/01/21 23:01 Pulse Ox 97 01/01/21 23:10
[2021-01-01 23:36] LABS: Troponin I < 0.05 ng/mL (<0.06)
[2021-01-01] MEDS: PROPOFOL 500 MG/50 ML BTL 14.952 MG IVPB (23:42)
[2021-01-02] VITALS (156 sets, daily range): BP systolic 91–195; BP diastolic 36–92; PULSE 62–125; RESP 0–27; TEMP 36.2–37; O2SAT 88–100
[2021-01-02] MEDS: PROPOFOL 1,000 MG/100 ML BTL 14.9 MG (04:02)
--- NOTE | 2021-01-02 08:22 | W.PM.PROGNOT ---
Date of Service Date of service: 01/02/21 Time of Service: 10:24 Assessment and Plan Assessment and plan (1) Respiratory failure: Status: Acute Assessment and plan: Extubated this morning. Not requiring oxygen. Respiratory failure was secondary to an event that caused AMS rather than the primary problem. There is no evidence of PNA. Monitor respiratory status. Palliative care is consulted to clarify goals of care. Await repeat speech therapy eval. Keep in ICU. Qualifiers: Chronicity: acute Respiratory failure complication: hypoxia Qualified Code(s): J96.01 - Acute respiratory failure with hypoxia (2) Altered mental status: Status: Acute Assessment and plan: While it is possible that this is medication-induced, seizure needs to be considered. Obtain EEG. Obtain neuro c/s if mental status not back to baseline by tomorrow. Qualifiers: Altered mental status type: coma Coma depth: [place] coma 3-8 Coma timing: at arrival to emergency department Qualified Code(s): R40.2432 - [place] coma scale score 3-8, at arrival to emergency department (3) Drug-induced encephalopathy: Status: Acute Assessment and plan: As above - For now, holding all oral medications (4) Parkinson's disease: Status: Chronic Assessment and plan: As above Would like to resume Parkinson's meds as soon as possible, but needs to pass swallow eval. Consider neuro c/s (5) DVT prophylaxis: Status: Acute Assessment and plan: [place] lovenox (6) Discharge planning issues: Status: Acute Assessment and plan: Full code Consult palliative care. Keep in ICU until tomorrow. Total Critical Care Time [address] Chavira. Subjective Subjective Interval history since last seen: Extubated this morning. Arousable to voice/touch, but not answering questions. Not following commands. Did not pass swallow eval this morning - re-evaluation is being planned for this afternoon. Exam Narrative Exam Narrative: General: Frail elderly female who is resting, arousable, keeps clearing her throat, not answering questions, not following commands, on aroom air at the time of my exam HEENT: EOMI, dry MM Heart: RRR, no m/r/g Lungs: CTAB Abdomen: soft, nontender, nondistended Extremities: no edema BLE's, wearing SCDs, trace pedal pulses B Objective Last Vital Signs Temp 36.8 C 01/02/21 03:57 Pulse 70 01/02/21 06:01 Resp 0 L 01/02/21 06:20 BP 140/58 L 01/02/21 06:01 Pulse Ox 98 01/02/21 06:20 Laboratory Results - last 24 hr 01/01/21 01/01/21 01/01/21 20:10 20:10 20:10 WBC RBC Hgb Hct MCV MCH MCHC RDW Plt Count MPV Immature Gran % Neutrophils % Lymphocytes % Monocytes % Eosinophils % Basophils % Nucleated RBC % Absolute Neutrophils Absolute Lymphocytes Absolute Monocytes Absolute Eosinophils Absolute Basophils ABG Sample Site ABG pH ABG pCO2 ABG pO2 ABG HCO3 ABG Total CO2 ABG O2 Saturation ABG Base Excess VBG Lactate Oxygen Liter Flow FiO2 Sodium Potassium Chloride Carbon Dioxide Anion Gap BUN Creatinine Estimated GFR/1.73 m2 Glucose Calcium Total Bilirubin AST ALT Alkaline Phosphatase Ammonia < 10 L Troponin I < 0.05 Total Protein Albumin TSH Urine Color Urine Clarity Urine pH Ur Specific [place] Urine Protein Urine Ketones Urine Blood Urine Nitrite Urine Bilirubin Urine Urobilinogen Ur Leukocyte Esterase Urine RBC Urine WBC Ur Epithelial Cells Urine Crystals Urine Bacteria Urine Mucus Ur Culture Indicated? Urine Glucose COVID-19 Source Nasal/Nares SARS-CoV-2 (PCR) Negative 01/01/21 01/01/21 01/01/21 20:10 20:10 20:10 WBC 6.36 RBC 3.97 Hgb 9.7 L Hct 32.2 L MCV 81.1 MCH 24.4 L MCHC 30.1 L RDW 20.7 H Plt Count 248 MPV 10.7 Immature Gran % 1.1 Neutrophils % 65.6 Lymphocytes % 19.3 Monocytes % 11.6 Eosinophils % 1.9 Basophils % 0.5 Nucleated RBC % 0 Absolute Neutrophils 4.17 Absolute Lymphocytes 1.23 Absolute Monocytes 0.74 Absolute Eosinophils 0.12 Absolute Basophils 0.03 ABG Sample Site ABG pH ABG pCO2 ABG pO2 ABG HCO3 ABG Total CO2 ABG O2 Saturation ABG Base Excess VBG Lactate 1.2 Oxygen Liter Flow FiO2 Sodium 142 Potassium 3.7 Chloride 107 Carbon Dioxide 27.6 Anion Gap 7.4 BUN 16 Creatinine 1.2 H Estimated GFR/1.73 m2 43.34 Glucose 163 H Calcium 9.4 Total Bilirubin 0.4 AST 11 L ALT 8 L Alkaline Phosphatase 100 Ammonia Troponin I Total Protein 6.4 Albumin 3.2 L TSH 1.84 Urine Color Urine Clarity Urine pH Ur Specific [place] Urine Protein Urine Ketones Urine Blood Urine Nitrite Urine Bilirubin Urine Urobilinogen Ur Leukocyte Esterase Urine RBC Urine WBC Ur Epithelial Cells Urine Crystals Urine Bacteria Urine Mucus Ur Culture Indicated? Urine Glucose COVID-19 Source SARS-CoV-2 (PCR) 01/01/21 01/01/21 01/01/21 20:37 21:00 23:00 WBC RBC Hgb Hct MCV MCH MCHC RDW Plt Count MPV Immature Gran % Neutrophils % Lymphocytes % Monocytes % Eosinophils % Basophils % Nucleated RBC % Absolute Neutrophils Absolute Lymphocytes Absolute Monocytes Absolute Eosinophils Absolute Basophils ABG Sample Site Left Radial ABG pH 7.40 ABG pCO2 41 ABG pO2 170 H ABG HCO3 25 ABG Total CO2 ABG O2 Saturation > 99 H ABG Base Excess 0 VBG Lactate Oxygen Liter Flow CMV VT360/R15/P5 FiO2 40 Sodium Potassium Chloride Carbon Dioxide Anion Gap BUN Creatinine Estimated GFR/1.73 m2 Glucose Calcium Total Bilirubin AST ALT Alkaline Phosphatase Ammonia Troponin I < 0.05 Total Protein Albumin TSH Urine Color Yellow Urine Clarity Clear Urine pH 6.0 Ur Specific [place] >= 1.030 H Urine Protein 30 H Urine Ketones Trace H Urine Blood Negative Urine Nitrite Negative Urine Bilirubin Negative Urine Urobilinogen 0.2 Ur Leukocyte Esterase Negative Urine RBC 3-5 H Urine WBC 5-10 Ur Epithelial Cells Moderate Urine Crystals Negative Urine Bacteria Rare Urine Mucus Heavy Ur Culture Indicated? No/Sq. Contamination Urine Glucose Negative COVID-19 Source SARS-CoV-2 (PCR)
[2021-01-02] MEDS: Pantoprazole 40 MG VIAL IVP (08:51)
--- NOTE | 2021-01-02 08:51 | SP_ITS ---
Date of service: 01/02/21 Time of Service: 08:52 Subjective Pt assessed at bedside within hour of extubation this AM with RN and RT present; 02 remaining at 97%, able to maintain alertness for ice chip trials x2, thin liquid (water) via cup sip / 30cc, overt s/sx aspiration noted (wet VQ, throat clear) however unclear if this is pharyngeal residue/phlegm or presence of aspiration given recent extubation; patient fell asleep, does not arouse to tactile stimulation to support additional safe oral intake; ELECTRONIC INTELLIGENCE OFFICER returned in afternoon for attempt at [place] Swallow Protocol/updated recommendations (see Impressions). Patient demonstrates partial ability to communicate wants/needs verbally (able to express self at sentence level as day progresses), however continues to demonstrate confusion and paranoid thoughts intermittently during assessment today (ie, unsure of current location, time; concerned staff having affair with her , asked will he keep doing this the rest of my life?, unable to answer follow up questions, unable to follow directions consistently despite visual model/cues and use of clear mask); also demonstrates reduced safety awareness, previous report of aggressive behavior with RN during the day. Objective Objective Clinical (Bedside) Swallow Evaluation Speech Language Pathology Patient referred from Dr Meng for clinical swallow evaluation given recent extubation and concerns for dysphagia. Precautions: Fall, Standard, Full Code HPI: Pt is a 80 year old female admitted 01/01 to the ICU after being intubated for an inability to protect her airway after what appears to be polypharmacy induced encephalopathy. Extubated AM 01/02. PMHx: Parkinsons Disease, dementia, AMS, respiratory failure, hypomagnesia, anemia, drug-induced encephalopathy Social History/Home Situation: Pt lives at [facility] in [place], where she receives all of her care. Her , Leandro lives in [place], [place], and her daughter Tari lives in [place], [place]. OBJECTIVE: Predisposing dysphagia risk factors: Parkinsons Disease, dementia, recent extubation Clinical signs of possible chronic dysphagia: overt s.s aspiration (TC, wet VQ) Precipitating dysphagia risk factors / triggering event: recent extubation s/p respiratory changes / drug-induced encephalopathy Sp02: 95% RR: 20 on RA Cranial nerve exam / Oral Motor: *truncated secondary to cognitive-communication deficits CN V: facial sensation appears intact to light touch labial protrusion unable to assess labial coordination/ROM impaired mastication unable to assess lingual/labial sensation unable to assess suspect superior hyoid movement is reduced CN VII: lateral sulcus residue unable to assess anterior spillage not observed salivation reduced / dry CN IX/X: palatal elevation - unable to assess Vocal Quality - wet/hoarse in AM, improving VQ throughout day taste - unable to assess onset of swallow - suspect possible delay pharyngeal residue - likely present nasopharyngeal regurgitation - none observed CN XII: bolus preparation/manipulation/control - possible impairment AP transit - possible impairment lingual protrusion unable to assess lingual coordination/ROM suspect impairment lingual residue present (cleared with tsp thin) Dentition/Oral Structures/Hygiene: oral hygiene appears adequate, will require assist by staff for thorough oral care to reduce oral bacteria load / improve oral comfort Language: verbal expression/fluency impaired in AM, improved by afternoon; naming, repetition, and auditory comprehension appear impaired (fluctuates) Hearing: Unknown Mental Status: AAOx2, recall of current events impaired (fluctuates) Speech: WFL Laryngeal function exam: Secretions: dry Vocal quality: WFL, somewhat low volume (unclear if this is baseline/secondary t o PD or from recent extubation) MPT: unable to assess S/Z ratio:unable to assess Pitch range: WFL Cough: unable to assess PO intake Ice:(-) neg overt s/sx aspiration in 2/2 trials (AM); (-) neg overt s/sx aspiration in 5/5 trials (PM) IDDSI 0: (+) positive overt s/sx aspiration via cup sip in 2/2 trials (AM and PM); (-) neg overt s/sx aspiration via tsp in 8/10 trials (AM and PM) IDDSI 4: difficulties with oral transfer, initiation x1, (+) positive overt s/sx aspiration (delayed cough) [place] Swallow Protocol: Unable to administer secondary to fluctuating / reduced JOSE JUAN, cognitive deficits (Fail) Assessment IMPRESSIONS: Patient demonstrates oropharyngeal dysphagia as characterized by overt s/sx pra ndial aspiration (difficulties with managing intake of solid puree texture/swallow initiation, less difficulty with thin liquid via teaspoon), likely [id number], secondary to recent extubation, drug-induced encephalopathy, and complicated by dx of PD. Recommend continued trials of po intake with ELECTRONIC INTELLIGENCE OFFICER; suspect patient is likely able to tolerate single small pills with thin liquid via teaspoon per overall presentation as of this afternoon (much improved from early AM), however unable to trial mixed consistency (ie, thin liquid+pill) today while on unit (patient not ordered p.o. medications, communicated this to RN who paged MD); communicated plan to trial oral medications during reassessment tomorrow (particularly sinemat given relationship to swallow function) and close monitoring by ELECTRONIC INTELLIGENCE OFFICER / staff readiness officer. Patient is at moderate-high risk for aspiration-related pulmonary complication, given need for assist with oral hygiene, fluctuations in cognitive status, & presumed reduced immunocompetence; improvements in physical mobility and overall pulmonary function likely to further reduce this risk. Further acute ELECTRONIC INTELLIGENCE OFFICER services warranted at this time. Provided education to patient/staff readiness officer re: anatomy/physiology of swallowing mechanism, s/sx to monitor for re: potential aspiration of po intake, rationale for thorough oral care / need for assist Discussed following recommendations with Dr Meng, WILSON; written recommendations also placed on whiteboard in patient's room. Recommendations: Instrumentation: N/A at this time given cognitive deficits RISK MANAGEMENT: Diet Texture Modification(s): - IDDSI Level 0 thin liquids via tsp only; total feed *Encourage throat clear + re-swallow after each presentation *Continue single ice chips to support oral comfort Medication administration only per MD; close monitoring for overt s/sx aspiration (throat clear, cough, wet vocal quality) *Oral care every 4 hours HOB upright as tolerated; upright for all PO intake. Encourage physical mobility as tolerated. Level of Assistance/Supervision: Assistive feeding only by trained staff, ELECTRONIC INTELLIGENCE OFFICER at this time PO intake only when awake/alert Strategies/Adaptations/Assistive Equipment: Reduce auditory and/or visual distractions when eating, Provide verbal and/or visual cues to use recommended strategies, Pace rate of intake Posture/Positioning Needs: Maintain upright position at least 30 minutes after meals, Sleep with head of bed elevated to reduce likelihood of nocturnal reflux Specialist referrals: N/A Ancillary tests: N/A Therapy: 5x/week, 1-2 weeks Plan ELECTRONIC INTELLIGENCE OFFICER to continue following while on unit to assess appropriateness for continued p.o. intake and risk management / communication strategies per patient status and JOSE JUAN. Patient is appropriate candidate for ELECTRONIC INTELLIGENCE OFFICER treatment once d/c to SNF setting. Sneha Hess MA CCC-ELECTRONIC INTELLIGENCE OFFICER Speech Language Pathologist ELECTRONIC INTELLIGENCE OFFICER CPT Code: 87763 Clinical Swallowing Evaluation Prison Goals: Patient will demonstrate negative overt s/s aspiration and tolerance of least restrictive diet to support nutrition/hydration needs and overall quality of life while on unit. Short Term Goals: 1. Patient will demonstrate negative overt s/s aspiration with Level 0 thin liquids via controlled cup sip in 10/10 opportunities given mod-max cues as needed while on unit. 2. Patient will demonstrate negative overt s/s aspiration with Level 4 pureed solids via teaspoon provided assist from staff in 10/10 opportunities given mod- max cues as needed while on unit. 3. Patient/staff will demonstrate comprehension and carryover of recommended aspiration/feeding precautions/recommendations with current diet texture modifications while on unit. Coding
[2021-01-02] MEDS: Normal Saline Flush 10 ML SYR IVP (08:52)
[2021-01-02] MEDS: Enoxaparin 40 MG/0.4 ML SYR SC (08:52)
--- NOTE | 2021-01-02 08:55 | PUCC_ITS ---
General Date of Service Date of service: 01/02/21 Time of Service: 08:00 Reason for Admission to ICU: Altered mental status Assessment and Plan Assessment and plan (1) Parkinson's disease: Status: Chronic (2) Drug-induced encephalopathy: Status: Acute (3) Altered mental status: Status: Acute Qualifiers: Altered mental status type: coma Coma depth: Saniya coma 3-8 Coma timing: at arrival to emergency department Qualified Code(s): R40.2432 - Saniya coma scale score 3-8, at arrival to emergency department (4) Respiratory failure: Status: Acute Qualifiers: Chronicity: acute Respiratory failure complication: hypoxia Qualified Code(s): J96.01 - Acute respiratory failure with hypoxia (5) Anemia: Status: Chronic Qualifiers: Anemia type: unspecified type Qualified Code(s): D64.9 - Anemia, unspecified (6) Hypomagnesemia: Status: Acute Assessment and plan: This is a 80-year-old female who was admitted to the ICU after being intubated for an inability to protect her airway after what appears to be polypharmacy induced encephalopathy. She takes lorazepam, Zyprexa, and Seroquel at night which appears to have oversedated her at her skilled nursing. This morning after my assessment it was clear that she was safe to be extubated as her mental status had significantly improved from the night before. Recommendations Pulmonary: Respiratory failure 2/2 AMS - intubated overnight for concerns for ability to protect airway - extubated this morning - can use supplemental O2 as needed for sat >90% - Incentive Spirometry - discontinue prn albuterol Cardiac: No acute concerns Renal: Hypomagnesemia - replete to 2.0 - phos level added for tomorrow I&O: Intake & Output 12/30/20 12/31/20 01/01/21 01/02/21 23:59 23:59 23:59 23:59 Intake Total 605 / 605 Output Total 160 / 160 150 / 150 Balance -160 / -160 455 / 455 Weight 71.2 kg 71.4 kg Daily Fluid Goal:: Even GI Nutrition: - MUT[employer] P[employer]CHER to evaluate - ok for sips and chips and meds from my perspective Infectious Disease: No acute concern Hematologic: Anemia, iron deficient - restart PO home iron Neurologic: Polypharmacy induced encephalopathy, improved - hold seroquel, lorazepam and zyprexa - can give melatonin for sleeping aid Parkinsons - recommend starting home carbidopa-levodopa - recommend restarting duloxetine Endocrine: no acute concerns Lines: PIV Weiner - can be discontinued Prophylaxis: DVT ppx with Lovenox Discontinued PPI - no indication now extubated Code Status: Resuscitation Status Full Code Subjective Critical and life-threatening events over the past 24 hours: This is a 80-year-old female with Parkinson's disease who reportedly after receiving her nightly medications became unresponsive prompting her to go to the emergency department. Patient takes several sedating medications including lorazepam, Zyprexa and Seroquel. She was reportedly not protecting her airway consistently and so after discussing the situation with her she was intubated. She remained stable overnight. On my assessment she wakes up to voice and is able to follow commands consistently. On her breathing trial this morning she did extremely well with no concerns during. After being on a spontaneous breathing trial for 30 minutes she was able to be extubated. Exam Const General: no acute distress Nutritional Appearance: well nourished [facility] Head: normocephalic Ears: external ears normal and no periauricular adenopathy General nose exam: nasal mucous membranes and turbinates normal Face and sinus: sinuses nontender Mouth: oropharynx normal and moist mucous membranes Teeth and gingiva: dentition normal Eyes General: appearance normal, both eyes and all related structures Pupils: PERRL Neck Neck: normal visual inspection and no lymphadenopathy Chest Chest: normal inspection of the chest Resp Effort & Inspection: normal respiratory effort Auscultation: clear to auscultation bilaterally, no rales, no rhonchi and no wheezes Cardio Rate: regular rate Rhythm: regular rhythm Heart Sounds: S1 normal, S2 normal and no murmurs Pulses: radial pulses present bilaterally GI Inspection: normal to inspection Palpation: soft Skin General skin exam: no rashes or lesions noted Neuro General: other (RASS -1) Extrem General: no clubbing, cyanosis or edema Psych Mental Status: mental status grossly normal Affect: normal affect Attitude: cooperative Most Recent VS/Results Last Vital Signs Temp 36.8 C 01/02/21 03:57 Pulse 70 01/02/21 06:01 Resp 0 L 01/02/21 06:20 BP 140/58 L 01/02/21 06:01 Pulse Ox 98 01/02/21 06:20 Laboratory Results - last 24 hr 01/01/21 01/01/21 01/01/21 20:10 20:10 20:10 WBC RBC Hgb Hct MCV MCH MCHC RDW Plt Count MPV Immature Gran % Neutrophils % Lymphocytes % Monocytes % Eosinophils % Basophils % Nucleated RBC % Absolute Neutrophils Absolute Lymphocytes Absolute Monocytes Absolute Eosinophils Absolute Basophils ABG Sample Site ABG pH ABG pCO2 ABG pO2 ABG HCO3 ABG Total CO2 ABG O2 Saturation ABG Base Excess VBG Lactate Oxygen Liter Flow FiO2 Sodium Potassium Chloride Carbon Dioxide Anion Gap BUN Creatinine Estimated GFR/1.73 m2 Glucose Calcium Total Bilirubin AST ALT Alkaline Phosphatase Ammonia < 10 L Troponin I < 0.05 Total Protein Albumin TSH Urine Color Urine Clarity Urine pH Ur Specific [place] Urine Protein Urine Ketones Urine Blood Urine Nitrite Urine Bilirubin Urine Urobilinogen Ur Leukocyte Esterase Urine RBC Urine WBC Ur Epithelial Cells Urine Crystals Urine Bacteria Urine Mucus Ur Culture Indicated? Urine Glucose COVID-19 Source Nasal/Nares SARS-CoV-2 (PCR) Negative 01/01/21 01/01/21 01/01/21 20:10 20:10 20:10 WBC 6.36 RBC 3.97 Hgb 9.7 L Hct 32.2 L MCV 81.1 MCH 24.4 L MCHC 30.1 L RDW 20.7 H Plt Count 248 MPV 10.7 Immature Gran % 1.1 Neutrophils % 65.6 Lymphocytes % 19.3 Monocytes % 11.6 Eosinophils % 1.9 Basophils % 0.5 Nucleated RBC % 0 Absolute Neutrophils 4.17 Absolute Lymphocytes 1.23 Absolute Monocytes 0.74 Absolute Eosinophils 0.12 Absolute Basophils 0.03 ABG Sample Site ABG pH ABG pCO2 ABG pO2 ABG HCO3 ABG Total CO2 ABG O2 Saturation ABG Base Excess VBG Lactate 1.2 Oxygen Liter Flow FiO2 Sodium 142 Potassium 3.7 Chloride 107 Carbon Dioxide 27.6 Anion Gap 7.4 BUN 16 Creatinine 1.2 H Estimated GFR/1.73 m2 43.34 Glucose 163 H Calcium 9.4 Total Bilirubin 0.4 AST 11 L ALT 8 L Alkaline Phosphatase 100 Ammonia Troponin I Total Protein 6.4 Albumin 3.2 L TSH 1.84 Urine Color Urine Clarity Urine pH Ur Specific [place] Urine Protein Urine Ketones Urine Blood Urine Nitrite Urine Bilirubin Urine Urobilinogen Ur Leukocyte Esterase Urine RBC Urine WBC Ur Epithelial Cells Urine Crystals Urine Bacteria Urine Mucus Ur Culture Indicated? Urine Glucose COVID-19 Source SARS-CoV-2 (PCR) 01/01/21 01/01/21 01/01/21 20:37 21:00 23:00 WBC RBC Hgb Hct MCV MCH MCHC RDW Plt Count MPV Immature Gran % Neutrophils % Lymphocytes % Monocytes % Eosinophils % Basophils % Nucleated RBC % Absolute Neutrophils Absolute Lymphocytes Absolute Monocytes Absolute Eosinophils Absolute Basophils ABG Sample Site Left Radial ABG pH 7.40 ABG pCO2 41 ABG pO2 170 H ABG HCO3 25 ABG Total CO2 ABG O2 Saturation > 99 H ABG Base Excess 0 VBG Lactate Oxygen Liter Flow CMV VT360/R15/P5 FiO2 40 Sodium Potassium Chloride Carbon Dioxide Anion Gap BUN Creatinine Estimated GFR/1.73 m2 Glucose Calcium Total Bilirubin AST ALT Alkaline Phosphatase Ammonia Troponin I < 0.05 Total Protein Albumin TSH Urine Color Yellow Urine Clarity Clear Urine pH 6.0 Ur Specific [place] >= 1.030 H Urine Protein 30 H Urine Ketones Trace H Urine Blood Negative Urine Nitrite Negative Urine Bilirubin Negative Urine Urobilinogen 0.2 Ur Leukocyte Esterase Negative Urine RBC 3-5 H Urine WBC 5-10 Ur Epithelial Cells Moderate Urine Crystals Negative Urine Bacteria Rare Urine Mucus Heavy Ur Culture Indicated? No/Sq. Contamination Urine Glucose Negative COVID-19 Source SARS-CoV-2 (PCR) Review of Systems Unobtainable due to endotracheal tube Time spent with patient Time spent in Critical Care: 45 Time spent in Critical care included: Coordination of care, Chart review, Documenting critically ill care, Time at immediate bedside and Discussing critically ill care with other medical staff
[2021-01-02 09:04] LABS: Abs Immature Grans 0.02 10^3/uL (0.0-0.06); Absolute Basophil Count 0.02 10^3/uL (0.0-0.2); Absolute Eosinophil Count 0.18 10^3/uL (0.0-0.7); Absolute Lymphocyte Count 1.15 10^3/uL (1.2-3.4); Absolute Monocyte Count 0.82 10^3/uL (0.1-0.8); Basophils % 0.3; Eosinophils % 2.4; HCT 32.6 % (36.0-46.0); Immature Grans % 0.3; Lymphocytes % 15.4; MCH 24.7 pg (27.0-33.0); MCHC 30.7 % (32.0-36.0); MCV 80.5 fL (80-95); MPV 10.3 fL (8.0-11.0); Monocytes % 10.9; Neutrophils % 70.7; Nucleated RBC 0 %; Platelet Count 204 10^3/uL (130-400); RBC 4.05 10^6/uL (3.93-5.22); RDW 20.9 % (11.7-14.6); RDW-SD 62.4 fL; WBC 7.49 10^3/uL (4.4-10.8)
[2021-01-02 09:12] LABS: Anion Gap 7.7 mmol/L (3-11); BUN 15 mg/dL (7-18); CO2 28.3 mmol/L (21.0-32.0); Calcium 9.1 mg/dL (8.5-10.1); Chloride 107 mmol/L (98-107); Estimated GFR 53.48 (mL/min/1.73m2); Glucose 95 mg/dL (74-106); INR 1.1 (0.9-1.1); Magnesium 1.7 mg/dL (1.8-2.4); Potassium 3.7 mmol/L (3.5-5.1); Prothrombin Time 10.6 sec (9.3-11.0); Sodium 143 mmol/L (136-145)
[2021-01-02 09:37] LABS: Anisocytosis 2+; Diff Comment RBC Morph Reviewed; Hypochromasia 1+; Microcytosis 1+
[2021-01-02 09:38] LABS: Poikilocytes 1+
--- NOTE | 2021-01-02 10:21 | INITIAL_ITS ---
- If Service Date Differs Date of service: 01/02/21 Time of Service: 10:21 Care Management Initial Assess REASON FOR HOSPITALIZATION:: AMS PAST MEDICAL HISTORY/PAST SURGICAL HISTORY:: Medical History: Altered mental status, respiratory failure, drug enduced encephalopathy. PREVIOUS FUNCTIONAL STATUS/SOCIAL/FAMILY SUPPORTS:: Brock resides at the [facility] in [place], where she receives all of her care. Her , Leandro lives in [place], [place], and her daughter Tari lives in [place], [place]. CURRENT FUNCTIONAL STATUS:: Per report, Brock required intubation yesterday. She has been successfully extubated this morning. When CM attempted to visit, her RN asked not to wake her, as she has been confused. Once she is ready for discharge, CM will coordinate her return to the [facility]. CM will continue to f eddie. Has patient been provided with info about the portal/API?: No Did the patient sign up for the portal?: No CODE STATUS:: Full Code INSURANCE COVERAGE / FINANCIAL ISSUES:: MCR/ Commercial MCR replacement- [facility] CURRENT HOME/COMMUNITY SERVICES/EQUIPMENT:: Brock currently resides at the [facility], who provide all of her care. PRIMARY CARE PHYSICIAN:: Unknown. POTENTIAL DISCHARGE NEEDS:: Coordinated return to the [facility]. PATIENT/FAMILY EDUCATION NEEDS:: Review discharge instructions, discussion of self care needs including ask me three and goals of care. ANTICIPATED BARRIERS TO DISCHARGE:: None identified at this time. TRANSPORTATION:: Dependent on mobility of patient. EMS vs RCT w/c van. PLAN:: Anticipate Brock will return to the [facility] when medically cleared. Transportation will depend on her mobility at time of discharge. She will follow up with her PCP and discharge plan of care. CM will continue to follow.
--- NOTE | 2021-01-02 14:56 | CHAPLAIN ---
Brock lives at the [facility] and was brought here yesterday. She was intubated yesterday and extubated today. Brock was in bed when I visited. At times she would stare off to the distance, but most of the time she was looking at me, and engaging in a conversation. She was teary at first. I couldn't understand everything she said because she spoke very softly, but it had something to do with her . She also asked several times if she is going to be here all day. I wasn't sure who she meant by she. I tried to reassure here that she is in a safe place and everyone here is helping to care for her. Brock told me her legs hurt and seemed to really struggle to move them at all. She was sitting part way up in bed, in what seemed like a very uncomfortable position. Brock was pleasant with me, but it was difficult to calm her.
[2021-01-02] MEDS: MAGNESIUM SULFATE 2 GM/50 ML BAG IVPB (15:22)
[2021-01-02] MEDS: Ferrous Sulfate 325 MG TAB PO (21:23)
[2021-01-02] MEDS: QUEtiapine 100 MG TAB 200 MG PO (21:23)
[2021-01-02] MEDS: Carbidopa 25/Levodopa 100 TAB PO (21:23)
[2021-01-02] MEDS: DULoxetine 30 MG CAP 60 MG PO (21:23)
[2021-01-02] MEDS: Ascorbic Acid 500 MG TAB PO (21:23)
[2021-01-02] MEDS: Refresh PLUS Eye Drops 0.4ml 1 EACH OP (21:24)
[2021-01-02] MEDS: LORazepam 1 MG TAB 0.5 MG PO (21:26)
[2021-01-03] VITALS (132 sets, daily range): BP systolic 109–157; BP diastolic 56–110; PULSE 71–113; RESP 12–32; TEMP 36.5–36.8; O2SAT 89–98
[2021-01-03] MEDS: Normal Saline Flush 10 ML SYR IVP ×2 (00:07→23:50)
--- NOTE | 2021-01-03 07:47 | PGE_ITS ---
Date of Service Date of service: 01/03/21 Time of Service: 12:34 Assessment and Plan Assessment and plan (1) Respiratory failure: Status: Resolved Assessment and plan: Extubated, Not requiring oxygen. There is no evidence of PNA. Respiratory failure was secondary to an event that caused AMS rather than the primary problem. Monitor respiratory status. Palliative care is consulted to clarify goals of care. Passed swallow eval. Transferred to [facility] status. Qualifiers: Chronicity: acute Respiratory failure complication: hypoxia Qualified Code(s): J96.01 - Acute respiratory failure with hypoxia (2) Altered mental status: Status: Acute Assessment and plan: While it is possible that this is medication-induced, seizure needs to be considered. Obtain EEG. The patient's seroquel was continued, but zyprexa is held - I wonder if it isn't this dual therapy that was causing her excess sedation. Qualifiers: Altered mental status type: coma Coma depth: Elgin coma 3-8 Coma timing: at arrival to emergency department Qualified Code(s): R40.2432 - [place] coma scale score 3-8, at arrival to emergency department (3) Drug-induced encephalopathy: Status: Acute Assessment and plan: As above - (4) Parkinson's disease: Status: Chronic Assessment and plan: As above Parkinson's meds resumed. Palliative care consulted. (5) DVT prophylaxis: Status: Acute Assessment and plan: SC lovenox (6) Discharge planning issues: Status: Acute Assessment and plan: Full code Consult palliative care. Transfer out of ICU. Subjective Subjective Interval history since last seen: Extubated yesterday. Slept all night. Ms Yonug states she is doing better today but had a lot of stuff in the back of her throat last night. She stares off into space when I try asking her about any other sx. Had 3 doses of ativan last night. Arousable this am. Fidgity. Does not keep BP pressure cuff on. 154/85. HR 94-104, PACs. Transferring to [facility] - 97-98%. Weiner 375 cc in 8 hrs. Transferring out of ICU. Exam Narrative Exam Narrative: General: Frail elderly female, awake, responds to name, having frequent episodes of staring into space when not answering questions. HEENT: EOMI, MMM Heart: RRR, no m/r/g Lungs: CTAB Abdomen: soft, nontender, nondistended Extremities: no edema BLE's, trace pedal pulses B Objective Last Vital Signs Temp 36.5 C 01/03/21 04:35 Pulse 79 01/03/21 04:35 Resp 18 01/03/21 04:35 BP 154/85 H 01/03/21 04:35 Pulse Ox 97 01/03/21 04:35 Laboratory Results - last 24 hr 01/02/21 01/02/21 01/02/21 08:50 08:50 08:50 WBC 7.49 RBC 4.05 Hgb 10.0 L Hct 32.6 L MCV 80.5 MCH 24.7 L MCHC 30.7 L RDW 20.9 H Plt Count 204 MPV 10.3 Immature Gran % 0.3 Neutrophils % 70.7 Lymphocytes % 15.4 Monocytes % 10.9 Eosinophils % 2.4 Basophils % 0.3 Nucleated RBC % 0 Absolute Neutrophils 5.30 Absolute Lymphocytes 1.15 L Absolute Monocytes 0.82 H Absolute Eosinophils 0.18 Absolute Basophils 0.02 RBC Morphology See Below Hypochromasia 1+ Poikilocytosis 1+ Anisocytosis 2+ Microcytosis 1+ PT 10.6 INR 1.1 Sodium 143 Potassium 3.7 Chloride 107 Carbon Dioxide 28.3 Anion Gap 7.7 BUN 15 Creatinine 1.0 Estimated GFR/1.73 m2 53.48 Glucose 95 D Calcium 9.1 Magnesium 1.7 L
[2021-01-03 08:06] LABS: Abs Immature Grans 0.02 10^3/uL (0.0-0.06); Absolute Basophil Count 0.02 10^3/uL (0.0-0.2); Absolute Eosinophil Count 0.14 10^3/uL (0.0-0.7); Absolute Lymphocyte Count 1.26 10^3/uL (1.2-3.4); Absolute Monocyte Count 0.74 10^3/uL (0.1-0.8); Absolute Neutrophil Count 3.25 10^3/uL (1.2-6.7); Basophils % 0.4; Eosinophils % 2.6; HCT 33.8 % (36.0-46.0); HGB 10.2 g/dL (11.2-15.7); Immature Grans % 0.4; Lymphocytes % 23.2; MCH 24.1 pg (27.0-33.0); MCHC 30.2 % (32.0-36.0); MCV 79.7 fL (80-95); Monocytes % 13.6; Neutrophils % 59.8; Nucleated RBC 0 %; RBC 4.24 10^6/uL (3.93-5.22); WBC 5.43 10^3/uL (4.4-10.8)
[2021-01-03 08:17] LABS: Anion Gap 7.7 mmol/L (3-11); BUN 12 mg/dL (7-18); CO2 28.3 mmol/L (21.0-32.0); CREATININE 0.9 mg/dL (0.55-1.02); Calcium 8.9 mg/dL (8.5-10.1); Chloride 108 mmol/L (98-107); Glucose 89 mg/dL (74-106); Magnesium 1.9 mg/dL (1.8-2.4); Potassium 4.1 mmol/L (3.5-5.1); Sodium 144 mmol/L (136-145)
[2021-01-03 08:21] LABS: PHOSPHORUS 4.2 mg/dL (2.6-4.7)
[2021-01-03] MEDS: Ferrous Sulfate 325 MG TAB PO ×2 (08:21→16:34)
[2021-01-03] MEDS: DULoxetine 30 MG CAP 60 MG PO ×2 (08:21→19:57)
[2021-01-03 08:22] LABS: Anisocytosis 2+; Diff Comment Diff Reviewed
[2021-01-03] MEDS: Folic Acid 1 MG TAB PO (08:22)
[2021-01-03] MEDS: LORazepam 1 MG TAB 0.5 MG PO ×3 (08:22→19:59)
[2021-01-03] MEDS: Cyanocobalamin 500 MCG TAB 1000 MCG PO (08:22)
[2021-01-03] MEDS: Ascorbic Acid 500 MG TAB PO ×2 (08:22→16:35)
[2021-01-03] MEDS: Carbidopa 25/Levodopa 100 TAB PO ×2 (08:22→13:53)
[2021-01-03] MEDS: Enoxaparin 40 MG/0.4 ML SYR SC (08:23)
--- NOTE | 2021-01-03 08:55 | CMPROGNOTE_ITS ---
- If Service Date Differs Date of service: 01/03/21 Time of Service: 17:26 Care Management Progress Note S/O: Brock remains in the ICU at this time for altered mental status, she had minimal oral intake this morning with assistance. Tabitha ICU Director consulted this comic book writer re: family concerns about Brock's admission. CM reviewed lack of clinical information about Brock as she has not previously been seen at [facility] and was placed at the [facility] from out of area. Tabitha reported Brock's family was exp ressing concerns re: current medications at the [facility] and patient presentation for admission- Tari ([phone], cell [phone]), Keyon ([phone]). CM called the [facility] and left request for child welfare social worker, Jessica and current provider to outreach and review the family's questions as information requested is not available to guide the family from [facility]. The plan will be for Brock to return to the [facility], and if the family wishes, to coordinate alternate placement from there. No change to overall plan. CM continues to follow. A: 80 year old female admitted to [facility] 01/01/21 P: Brock will return to the [facility] when medically cleared. Transportation will depend on her mobility at time of discharge. She will follow up with her PCP and discharge plan of care. CM will continue to follow.
--- NOTE | 2021-01-03 08:55 | PDOC.CMPRO ---
- If Service Date Differs Date of service: 01/03/21 Time of Service: 17:26 Care Management Progress Note S/O: Brock remains in the ICU at this time for altered mental status, she had minimal oral intake this morning with assistance. Tabitha ICU Director consulted this typewriter repairer re: family concerns about Brock's admission. CM reviewed lack of clinical information about Brock as she has not previously been seen at [facility] and was placed at the [facility] from out of area. Tabitha reported Brock's family was expressing concerns re: current medications at the [facility] and patient presentation for admission- Tari ([phone], cell [phone]), Keyon ([phone]). CM called the [facility] and left request for social service liaison, Jessica and current provider to outreach and review the family's questions as information requested is not available to guide the family from [facility]. The plan will be for Brock to return to the [facility], and if the family wishes, to coordinate alternate placement from there. No change to overall plan. CM continues to follow. A: 80 year old female admitted to [facility] 01/01/21 P: Brock will return to the [facility] when medically cleared. Transportation will depend on her mobility at time of discharge. She will follow up with her PCP and discharge plan of care. CM will continue to follow.
--- NOTE | 2021-01-03 14:17 | CHAPLAIN ---
Brock was sitting on the edge of her bed when I visited. She is here from the [facility]. The tv was on, but she wasn't watching. She seemed less vague today, did still not carry on a conversation. A couple of times she said are they going to let this continue to happen? but was not able to explain what she meant by there. She didn't remember where she lives or grew up and said she doesn't like tv or music. She laughter a few times when talked about other things. I will continue to visit.
--- NOTE | 2021-01-03 17:08 | W.SPSTP ---
Date of service: 01/03/21 Time of Service: 14:30 Subjective Patient was contacted at bedside in ICU, amenable to participate in swallow follow-up. I choke a lot when I swallow. Continues with great difficulty comprehending likely 2/2 hearing status as well as baseline cognitive deficits. At conclusion of session, patient declining further trials, I'm done with this program. Respiratory Status: Tolerating room air w/o s/sx dyspnea. O2 sat 94 or above, RR=22 throughout trials. Dry vocal quality/no baseline coughing. Mental Status: Not orientated to situation, place, time. No recall of yesterday's swallow evaluation. Interim updates: Pt transfered to M/S status, awaiting room and still located in ICU. Objective/Assessment/Plan Objective Treatment Techniques & Outcomes: [employer] Goals: Patient will demonstrate negative overt s/s aspiration and tolerance of least restrictive diet to support nutrition/hydration needs and overall quality of life while on unit. Short Term Goals: 1. Patient will demonstrate negative overt s/s aspiration with Level 0 thin liquids via controlled cup sip in 10/10 opportunities given mod-max cues as needed while on unit. GOAL MET - will continue to monitor: IDDSI level 0 - (Thin liquid) trials: Oral phase: Unable to clear large pill with thin liquid, required 2nd trial. Pharyngeal phase: (-) Negative overt s/sx aspiration (cough, throat clear) via controlled cup sip in 10/10 trials with assist. Vocal quality remained dry throughout. Behaviors: Self-selected small sip size 2. Patient will demonstrate negative overt s/s aspiration with Level 4 pureed solids via teaspoon provided assist from staff in 10/10 opportunities given mod-max cues as needed while on unit. IN PROGRESS: IDDSI level 4 - (Puree solids) trials: Oral phase: Min to none oral residue. Able to clear large pill with spoonful of pudding . Pharyngeal phase: (-) Negative overt s/sx aspiration (cough, throat clear) via tsp (total assist) in +7/7 trials with assist. Vocal quality remained dry throughout. 3. Patient will demonstrate negative overt s/sx aspiration with Level 7 regular solids provided assist from staff in 10/10 opportunities given mod-max cues as needed while on unit. IN PROGRESS: IDDSI level 7 - (crackers) trials: Oral phase: Very slow mastication, with mild reduced rotary movemetn. Min/mild oral residue. Cleared with sip thin liquid. Pharyngeal phase: (-) Negative overt s/sx aspiration (cough, throat clear) via tsp (total assist) in +1/1 trials with assist. Vocal quality remained dry throughout. 3. Patient/staff will demonstrate comprehension and carryover of recommended aspiration/feeding precautions/recommendations with current diet texture modifications while on unit. IN PROGRESS: Provided education to RN (Patient not fully oriented to situation) re: s/sx aspiration, current recommended diet, medication delivery, oral care/positioning recs and appropriate swallow strategies and level of assist. Assessment Patient remains moderate risk for aspiration-related pulmonary complication tommy. given relative recency of extubation, AMS, and PD dx. However, pt presents w/ reduced s/sx aspiration this date, noting no overt s/sx postprandial aspiration and maintaining O2 sats. Recommend to initiate Level 4 (Puree) diet overnight, DRIER BELT CONVEYOR to follow-up tomorrow morning to evaluate meal tolerance and carryover of precautions. Discussed following RISK MANAGEMENT recommendations with Dr Meng, RN; written recommendations also placed on whiteboard in patient's room. RISK MANAGEMENT: Level of Assistance/Supervision: Assistive feeding only by trained staff or DRIER BELT CONVEYOR at this time PO intake only when awake/alert *Oral care every 4 hours HOB upright as tolerated; upright for all PO intake. Encourage physical mobility as tolerated. Diet Texture Modification(s): - IDDSI Level 0 thin liquids via cup sip - IDDSI Level 4 solids (puree) via TSP *Encourage throat clear + re-swallow after several sips/bites *Continue single ice chips to support oral comfort Medication administration: 1 at a time in tsp pudding/puree. Strategies/Adaptations/Assistive Equipment: Reduce auditory and/or visual distractions when eating, Provide verbal and/or visual cues to use recommended strategies, Pace rate of intake Posture/Positioning Needs: Maintain upright position at least 30 minutes after meals, Sleep with head of bed elevated to reduce likelihood of nocturnal reflux Plan: DRIER BELT CONVEYOR to continue following while on unit up to 5x/week to assess appropriateness for continued p.o. intake and risk management / communication strategies per patient status and JOSE JUAN. Patient is appropriate candidate for DRIER BELT CONVEYOR treatment once d/c to SNF setting. TOTAL TIME SPENT: 30 min Treatment code: 15692 Dysphagia tx Coding
[2021-01-03] MEDS: QUEtiapine 100 MG TAB 200 MG PO (19:57)
[2021-01-04] VITALS (22 sets, daily range): BP systolic 132; BP diastolic 80; PULSE 74–112; RESP 17–27; TEMP 36.8; O2SAT 92
[2021-01-04 07:30] LABS: Abs Immature Grans 0.01 10^3/uL (0.0-0.06); Absolute Basophil Count 0.04 10^3/uL (0.0-0.2); Absolute Eosinophil Count 0.21 10^3/uL (0.0-0.7); Absolute Lymphocyte Count 1.32 10^3/uL (1.2-3.4); Absolute Monocyte Count 0.75 10^3/uL (0.1-0.8); Absolute Neutrophil Count 2.84 10^3/uL (1.2-6.7); Basophils % 0.8; Eosinophils % 4.1; HCT 32.7 % (36.0-46.0); Immature Grans % 0.2; Lymphocytes % 25.5; MCH 24.6 pg (27.0-33.0); MCHC 30.6 % (32.0-36.0); MCV 80.3 fL (80-95); MPV 11.1 fL (8.0-11.0); Monocytes % 14.5; Neutrophils % 54.9; Nucleated RBC 0 %; Platelet Count 238 10^3/uL (130-400); RBC 4.07 10^6/uL (3.93-5.22); RDW 20.7 % (11.7-14.6); RDW-SD 60.3 fL; WBC 5.17 10^3/uL (4.4-10.8)
[2021-01-04 07:42] LABS: BUN 9 mg/dL (7-18); CREATININE 0.9 mg/dL (0.55-1.02); Calcium 8.8 mg/dL (8.5-10.1); Chloride 108 mmol/L (98-107); Glucose 92 mg/dL (74-106); Magnesium 1.7 mg/dL (1.8-2.4); Potassium 3.4 mmol/L (3.5-5.1); Sodium 143 mmol/L (136-145)
[2021-01-04 07:48] LABS: Anisocytosis 2+; Diff Comment RBC Morph Reviewed; Poikilocytes 2+
[2021-01-04] MEDS: DULoxetine 30 MG CAP 60 MG PO (08:15)
[2021-01-04] MEDS: Folic Acid 1 MG TAB PO (08:29)
[2021-01-04] MEDS: Cyanocobalamin 500 MCG TAB 1000 MCG PO (08:29)
[2021-01-04] MEDS: Carbidopa 25/Levodopa 100 TAB PO ×2 (08:29→14:05)
[2021-01-04] MEDS: Enoxaparin 40 MG/0.4 ML SYR SC (08:29)
[2021-01-04] MEDS: Ferrous Sulfate 325 MG TAB PO (08:29)
[2021-01-04] MEDS: Ascorbic Acid 500 MG TAB PO (08:30)
--- NOTE | 2021-01-04 08:45 | CMPROGNOTE_ITS ---
Care Management Progress Note S/O: Brock remains in the ICU at this time for altered mental status, she had minimal oral intake this morning with assistance. Tabitha ICU Director consulted this automatic typewriter inspector re: family concerns about Brock's admission. CM reviewed lack of clinical information about Brock as she has not previously been seen at [facility] and was placed at the [facility] from out of area. Tabitha reported Brock's family was expressing concerns re: current medications at the [facility] and patient presentation for admission- Tari ([phone], cell [phone]), Keyon ([phone]). CM called the [facility] and left request for social services specialist, Jessica and current provider to outreach and review the family's questions as information requested is not available to guide the family from [facility]. The plan will be for Brock to return to the [facility], and if the family wishes, to coordinate alternate placement from there. No change to overall plan. CM continues to follow. A: 80 year old female admitted to [facility] 01/01/21 P: Brock will return to the [facility] when medically cleared. Transportation will depend on her mobility at time of discharge. She will follow up with her PCP and discharge plan of care. CM will continue to follow.
--- NOTE | 2021-01-04 08:45 | PDOC.CMPRO ---
Care Management Progress Note S/O: Brock remains in the ICU at this time for altered mental status, she had minimal oral intake this morning with assistance. Tabitha ICU Director consulted this director underwriter sales re: family concerns about Brock's admission. CM reviewed lack of clinical information about Brock as she has not previously been seen at [facility] and was placed at the [facility] from out of area. Tabitha reported Brock's family was expressing concerns re: current medications at the [facility] and patient presentation for admission- Tari ([phone], cell [phone]), Keyon ([phone]). CM called the [facility] and left request for mental health social worker, Jessica and current provider to outreach and review the family's questions as information requested is not available to guide the family from [facility]. The plan will be for Brock to return to the [facility], and if the family wishes, to coordinate alternate placement from there. No change to overall plan. CM continues to follow. A: 80 year old female admitted to [facility] 01/01/21 P: Brock will return to the [facility] when medically cleared. Transportation will depend on her mobility at time of discharge. She will follow up with her PCP and discharge plan of care. CM will continue to follow.
[2021-01-04] MEDS: MAGNESIUM SULFATE 2 GM/50 ML BAG IVPB (09:19)
[2021-01-04] MEDS: POTASSIUM CHLORIDE 20 MEQ/100 ML BAG 50 MEQ IVPB ×2 (09:19→10:57)
--- NOTE | 2021-01-04 10:17 | DSE_ITS ---
Date of service: 01/04/21 Time of Service: 10:17 DS: Diagnosis Discharge Diagnosis (1) Oropharyngeal dysphagia: Status: Acute (2) Respiratory failure: Status: Resolved (3) Drug-induced encephalopathy: Status: Acute (4) Parkinson's disease: Status: Chronic (5) Hypokalemia: Status: Acute (6) Hypomagnesemia: Status: Acute (7) Anemia: Status: Chronic Asessment and Plan: On chronic iron, folate, and B12 repletion (8) COVID-19 ruled out by laboratory testing: Status: Ruled-out Discharge Plan Disposition Patient Disposition: SNF (LEVEL 1) [facility] Condition: Serious Discharge Details Reason For Visit: AMS Admit Date/Time: 01/01/21 23:13 Admit Provider: Wale Soriano Attending Provider: Wale Soriano Primary Care Provider: Unknown,Unknown Hospital Course Hospital Course: Ms Young is a 80 year old female with PMHx of 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 The patient had been found unresponsive at her facility and, due to her oxygen requirement on arrival to our ED and inability to protect her airway, was intubated in our emergency department. ACS was ruled out. She did not have any evidence of infectious process in her lungs. She ruled out for COVID-19. She was evaluated by pulmonology/critical care (Dr Chavira), who felt the patient was arousable enough by the following morning where she could be safely extubated. The patient was evaluated by speech therapy who initially permitted clear liquids. The patient was able to take her medications, but due to her presentaton (which was felt to be due to polypharmacy vs seizure), her zyprexa was held and seroquel was continued. No unresponsive episodes were noted since, and the patient was much more awake. She was steiner sferred out of the ICU on 01/03/21. EEG was done, but read not yet available at the time of discharge. It will need to be followed up by the provider at the [facility] to ensure that the patient does not require initiation of anticonvulsants. She was re-evaluated by speech therapy who felt her diet could be advanced to pureed with thin liquids. At this point, the patient is felt to be at her baseline mental status and safe for discharge back to the [facility]. The patient's electrolytes (magnesium and potassium) required repletion on this admission and will need to be followed up in 3-4 days at the nursing facility. She will need speech therapy follow up. Care for patient as well as completion of her discharge summary took 45 minutes on the day of discharge. Home Meds and New Rx's Prescriptions: Continued quetiapine [Seroquel] 200 mg Tablet 200 mg PO QHS RF: 0 cyanocobalamin (vitamin B-12) 1,000 mcg Tablet 1,000 mcg PO DAILY RF: 0 acetaminophen 650 mg Tablet 650 mg PO Q6H PRN (Reason: Fever Or Pain) RF: 0 ascorbic acid (vitamin C) 500 mg Tablet 500 mg PO BID RF: 0 carboxymethylcellulose sodium [Refresh Tears] 0.5 % Drops 1 drp OPHTHALMIC (EYE) HS RF: 0 ferrous sulfate 325 mg (65 mg iron) Tablet 325 mg PO BID RF: 0 folic acid 1 mg Tablet 1 mg PO DAILY RF: 0 lorazepam [Ativan] 1 mg Tablet 1 mg PO TID RF: 0 carbidopa-levodopa 25-100 mg Tablet 1 tab PO TID RF: 0 duloxetine 60 mg Capsule, Delayed Rel Sprinkle 60 mg PO BID RF: 0 Discontinued olanzapine [Zyprexa] 10 mg Tablet 10 mg PO QHS RF: 0 Discharge Instructions Activity:: Activity as Tolerated Equipment/Supplies:: No Equipment Needed Diet:: Pureed thin liquids Discharge Orders Discharge Orders: Discharge Order (Routine); Ordered 01/04/21 Ordered By: Mary Meng DS: Summary Time Spent with Patient providing and/or coordinating discharge services: Greater than 30 minutes Status at Discharge Functional status at discharge: wheelchair bound Overall status at discharge: patient is back to baseline Mental Status: mental status grossly normal Speech and Movement: speech and movement normal Mood: congruent mood Affect: normal affect Exam Narrative Exam Narrative: General: Frail elderly female, awake, responds to name, having frequent episodes of staring into space when not answering questions. HEENT: EOMI, MMM Heart: RRR, no m/r/g Lungs: CTAB Abdomen: soft, nontender, nondistended Extremities: no edema BLE's, trace pedal pulses B Psych Mental Status: mental status grossly normal Speech and Movement: speech and movement normal Mood: congruent mood Affect: normal affect DS: Data Vitals/I&O Vitals and I&O: Vital Signs Temperature 36.8 C 01/04/21 08:02 Temperature Source Temporal Artery Scan 01/04/21 08:02 Pulse 74 01/04/21 08:04 Pulse Rhythm Regular 01/04/21 09:34 Pulse 90 01/04/21 03:10 Respiratory Rate 22 01/04/21 08:02 Respiratory Effort 01/04/21 09:34 Respiratory Depth Normal 01/04/21 09:34 Respiratory Pattern Normal 01/04/21 09:34 Blood Pressure 132/80 01/04/21 08:02 Blood Pressure Mean 83 01/03/21 23:24 Blood Pressure Position Supine 01/03/21 04:35 Pulse Oximetry 92 01/04/21 08:02 Respiratory End-tidal CO2 36 01/01/21 22:04 Oxygen Delivery Method Room Air 01/04/21 08:02 Oxygen Flow Rate 0 01/04/21 08:02 Fraction of Inspired Oxygen (FIO2) 21 01/02/21 08:56 Pain Level 0 01/04/21 08:02 Intake & Output 01/03/21 01/03/21 01/04/21 11:59 23:59 11:59 Intake Total 120 / 315 195 / 315 100 / 100 Output Total 375 / 575 200 / 575 Balance -255 / -260 -5 / -260 100 / 100 Weight 71.8 kg 68.9 kg Intake: Oral 120 / 315 195 / 315 100 / 100 Output: Urine 375 / 575 200 / 575 Other: Urine Color Yellow Yellow Urine Appearance Clear Clear Clear Urine Odor Normal Comment santillan present Voiding Methods Incontinent Data Completed and Pending Completed studies during hospitalization [Text1]: CT head/c/spine/facial bones: No acute intracranial findings on this noninfused CT scan of the brain. No evidence of facial nor orbital blowout fractures. No evidence of cervical spine fracture, malalignment, nor acute compromise of the cervical spinal canal. Chronic degenerative disc disease and degenerative changes noted in the cervical spine but no fractures. CXR: Elevated right hemidiaphragm. No acute pulmonary findings. Endotracheal tube is in satisfactory position. Pending studies at discharge: EEG read pending Labs on day of discharge: Labs from last 24 hours 01/04/21 01/04/21 01/04/21 08:36 06:10 06:10 WBC 5.17 RBC 4.07 Hgb 10.0 L Hct 32.7 L MCV 80.3 MCH 24.6 L MCHC 30.6 L RDW 20.7 H Plt Count 238 MPV 11.1 H Immature Gran % 0.2 Neutrophils % 54.9 Lymphocytes % 25.5 Monocytes % 14.5 Eosinophils % 4.1 Basophils % 0.8 Nucleated RBC % 0 Absolute Neutrophils 2.84 Absolute Lymphocytes 1.32 Absolute Monocytes 0.75 Absolute Eosinophils 0.21 Absolute Basophils 0.04 RBC Morphology See Below Poikilocytosis 2+ Anisocytosis 2+ Sodium 143 Potassium 3.4 L Chloride 108 H Carbon Dioxide 30.0 Anion Gap 5.0 BUN 9 Creatinine 0.9 Estimated GFR/1.73 m2 >= 60.00 Glucose 92 Calcium 8.8 Magnesium 1.7 L COVID-19 Source Pending SARS-CoV-2 (PCR) Pending Preliminary micro results at discharge 01/01/21 23:00 Blood Culture - Preliminary Blood NO GROWTH 48 HOURS 01/01/21 22:45 Blood Culture - Preliminary Blood NO GROWTH 48 HOURS [facility] Medical History Anemia Parkinson's disease Social History Smoking/Tobacco Use Status: Unknown Smoking risk assessment performed?: Yes Additional Social history: unable to assess.
--- NOTE | 2021-01-04 10:19 | CMDISCH_ITS ---
- If Service Date Differs Date of service: 01/04/21 Time of Service: 10:19 LACE Index Scoring Tool - Questions: Length of Stay (in days): 3 Acuity (Admit via E.D.?): Yes Comorbidities: Dementia E.D. Visits: 1 - Answers: Total Score: 10 Risk of Readmission: High Risk Care Management Discharge Reason for Hospitalization: AMS Discharge Plan: Brock will return to the [facility] when medically cleared. She will transport via [facility], coordinated by this script writer. CM reviewed with Jessica at the [facility] who reported talking with Brock's family with Katelyn as well, and the discussion going well. CM faxed orders on discharge and provided RN-RN information to GEOLOGY SCIENTIST-Brock will be going to [employer] at the facility. Patient/Family Education Needs: Review discharge instructions, discuss Ask Me Three. Services Needed at Discharge: [facility] Facility ([facility]-return ), Transportation ([facility] )
--- NOTE | 2021-01-04 10:30 | STREC_ITS ---
Date of service: 01/04/21 Time of Service: 10:30 Speech Therapy Recommendations Report ST Recommendations: SPEECH THERAPY - INPATIENT SWALLOW - NON-TREATMENT NOTE Reason for non-treatment note: Patient not agreeable to participate Time contacted: 10:30 am. Attempted to contact patient to assess tolerance of current diet texture (IDDS 4 puree/IDDSI -0 thin) as well as upgraded textures this date, but patient was not amenable to participating in trials this date as she was not hungry. Per RN report, she did very well tolerating (IDDS 4 puree/IDDSI -0 thin) tray overnight and at breakfast, without coughing, choking, or wet voice quality. Patient now being discharged back to [facility] at noon today per MD. Given SERVICE DESK TEAM LEAD was unable to trial any upgraded textures this date, patient's recommended discharge diet will be (IDDS 4 puree/IDDSI -0 thin) with recommendation for continued SERVICE DESK TEAM LEAD services in order to safely re-establish least restrictive diet as well as provide communication recommendations. Coding
[2021-01-04] MEDS: Normal Saline 500 ML 25 ML IV (11:00)
[2021-01-04 13:28] LABS: Source Nasal/Nares
[2021-01-04 14:25] LABS: COVID-19 PCR Negative (Negative)
--- NOTE | 2021-01-04 14:46 | NUR.NOTE ---
COVID 19 test is complete and is negative. Results given to [facility].Nursing Note:
--- NOTE | 2021-01-04 18:32 | PDOC.EEG_ITS ---
Neurology EEG EEG: [facility] Department of Neurology INPATIENT EEG REPORT Date of Recordin01/03/21 Interpreting Physician: Dr. Sweta Maldonado Reason for study: Ms. Dutta is a 80 year-old woman admitted with respiratory failure and altered mental status. Current Medications: Please see MAR. METHODS: A 21 channel digitized electroencephalogram was performed in the [facility] Med/Surg Floor or ICU. The 10/20 international system of electrode placement was used and bipolar and referential electrode montages were recorded. In addition to EEG the patient was monitored for EKG and lateral/vertical eye movements. Activation procedures of photic stimulation and hyperventilation were performed if applicable. Video was used during activation procedures and during events where applicable. The duration of the recording was 30 minutes. DESCRIPTION OF EEG: This was a technically limited study due to diffusely high impedance values. The patient was noted to be awake and drowsy during the recording. During maximal wakefulness an 8-Hz posterior background rhythm was present which was well-modulated, symmetrical, reactive to eye opening, and of moderate voltage. With eye opening the background activity changed to a low voltage mixture of alpha, beta, and occasional theta range frequencies. Faster frequencies were present in the bilateral anterior head regions. There was a normal anterior- posterior voltage gradient. During drowsiness, there was attenuation of the posterior dominant background rhythm and vertex waves. No stage II sleep was recorded. There were infrequent moderate-amplitude, non-rhythmic generalized triphasic waves. There were sharp-waves a C4 and P4 but these were not clearly epileptic. Activating Procedures: Photic stimulation was performed which produced no posterior driving response. Hyperventilation was not performed. EKG: EKG revealed normal sinus rhythm. INTERPRETATION: This EEG is abnormal due to: #1. Occasional generalized, moderate-amplitude triphasic waves. #2. Slowing of the posterior dominant background rhythm. PRIOR EEG: none CLINICAL CORRELATION: The background slowing and triphasic waves are suggestive of a mild-moderate diffuse cerebral encephalopathy of broad differential including toxic-metabolic etiology. No focal regions of cerebral dysfunction or epileptiform activity was present. Clinical correlation is advised. Sweta Maldonado MD
== END 2021-01-04 14:45 | disposition skilled nursing facility (03) | DRG 91 ==
LOC: ER 23:38 → ICU 01-02 00:08
PROVIDERS: Internal Medicine; Student in an Organized Health Care Education/Training Program; Admitting Provider Internal Medicine; Emergency Provider Student in an Organized Health Care Education/Training Program; Visit Provider Internal Medicine
DX: G92.8 Other toxic encephalopathy (principal); J96.01 Acute respiratory failure with hypoxia; R40.2432 Glasgow coma scale score 3-8, at arrival to emergency department; E83.42 Hypomagnesemia; G20 Parkinson's disease; F02.80 Dementia in other diseases classified elsewhere, unspecified severity, without behavioral disturbance, psychotic disturbance, mood disturbance, and anxiety; Z20.822 Contact with and (suspected) exposure to COVID-19; R13.12 Dysphagia, oropharyngeal phase; E87.6 Hypokalemia; D64.9 Anemia, unspecified; T50.995A Adverse effect of other drugs, medicaments and biological substances, initial encounter
CPT/HCPCS: 31500; 36415; 36416; 51702; 71045; 80048; 80053; 82805; 82962; 87040; 87449; 87635; 92526; 92610; 93005; 95816; 95819; 99291; J1650; 36600; 70450; 70486; 72125; 81003; 81015; 82140; 83605; 83735; 84100; 84443; 84484; 85025; 85610; 93010; 99232; 99239; J3480

== ENCOUNTER → 2021-01-03 16:00 | Outpatient (BNVA) | payer MEDICARE, SELFPAY | PROVIDERS: Visit Provider Psychiatry & Neurology Neurology | DX: R69 Illness, unspecified (principal) ==

== ENCOUNTER 2021-01-09 16:52 | Outpatient (REF) | payer MEDICARE, SELFPAY ==
[2021-01-09 18:00] LABS: Anion Gap 7.9 mmol/L (3-11); BUN 14 mg/dL (7-18); CO2 26.1 mmol/L (21.0-32.0); CREATININE 1.2 mg/dL (0.55-1.02); Calcium 8.9 mg/dL (8.5-10.1); Chloride 107 mmol/L (98-107); Estimated GFR 43.34 (mL/min/1.73m2); Glucose 147 mg/dL (74-106); Magnesium 1.6 mg/dL (1.8-2.4); Potassium 4.2 mmol/L (3.5-5.1); Sodium 141 mmol/L (136-145)
== END 2021-01-09 16:53 | disposition home or self-care (01) ==
LOC: LBN 16:52
PROVIDERS: Visit Provider Nurse Practitioner Gerontology
DX: I10 Essential (primary) hypertension (principal)
CPT/HCPCS: 80048; 83735

== ENCOUNTER 2021-01-13 11:13 | Emergency (ER) | payer MEDICARE, SELFPAY ==
--- NOTE | 2021-01-13 11:13 | W.ED.GENAD ---
Discharge Plan Disposition Patient Disposition: SNF (LEVEL 1) [facility] Condition: Stable Discharge Details Clinical Impression: Parkinson's disease, Dehydration Primary Care Provider: Unknown,Unknown ED Provider: Madie Griffith Home Meds and New Rx's Prescriptions: Continued quetiapine [Seroquel] 200 mg Tablet 200 mg PO QHS RF: 0 cyanocobalamin (vitamin B-12) 1,000 mcg Tablet 1,000 mcg PO DAILY RF: 0 acetaminophen 650 mg Tablet 650 mg PO Q6H PRN (Reason: Fever Or Pain) RF: 0 ascorbic acid (vitamin C) 500 mg Tablet 500 mg PO BID RF: 0 carboxymethylcellulose sodium [Refresh Tears] 0.5 % Drops 1 drp OPHTHALMIC (EYE) HS RF: 0 ferrous sulfate 325 mg (65 mg iron) Tablet 325 mg PO BID RF: 0 folic acid 1 mg Tablet 1 mg PO DAILY RF: 0 lorazepam [Ativan] 1 mg Tablet 1 mg PO TID RF: 0 carbidopa-levodopa 25-100 mg Tablet 1 tab PO TID RF: 0 duloxetine 60 mg Capsule, Delayed Rel Sprinkle 60 mg PO BID RF: 0 B12 Active 1,000 mcg Tablet,Chewable 1,000 mcg PO DAILY RF: 0 duloxetine 60 mg Capsule,Delayed Release(Dr/Ec) 60 mg PO BID RF: 0 olanzapine [Zyprexa] 10 mg Tablet 10 mg PO DAILY RF: 0 Discharge Instructions Instructions: Dehydration (ED) Additional Instructions: I am concerned that Dangelo worsening symptoms may be associated with her stopping her carbidopa levodopa. I encourage primary care to look further at patient's current medication list and consider medication causes of current symptoms. Imaging and labs are reassuring. Mild dehydration. Encourage hydration. Please follow-up with primary care in the next 2 days for reevaluation. Return with any new or worsening symptoms. Discharge Data Discharge Date/Time-TO BE ENTERED AT DEPARTURE: 01/13/21 15:09 Medical Decision Making Patient is a pleasant 80 year old female brought in via EMS from the [facility] with c/c of AMS. Per EMS, patient was willy in being catatnic, refusing care. Patient had a fall on 01/09, unclear injuries. Was initially reporting CP after fall but that has since resolved. Patient denies any fevers/chills. She denies any pain, no CP, HAND, SOB. Patient was recently admitted for AMS on 01/01/21. At that time, her AMS was thought to be medication induced. Her zyprexa was held, seroquel continued. When she was here last, she initially presented with sedation with need for intubation. Patient was able to be extubated the following day. EEG was obtained during recent admission and reviewed by neurology. Concerning for occasional, generalized, moderate-amplitude triphasic waves as well as slowing of the posterior dominant background rhythm. No epileptic findings noted. On exam, patient is quiet. She is able to follow commands. Appears generally weak. Is alert and interactive. Able to answer questions. [place]. She has strength equal in BUE. Weak in BLE, able to move them both but has difficulty holding her legs up, equal bilaterally. No evidence of head trauma. No neck pain. Lungs are clear. Cardiac auscultation concerning for irregular rhythm. Abdomen benign. No LE edema. Spoke with nursing staff, primary care provider evaluated her today and was concerned that she was, in a catatonic state. They describe her as being confused and difficult to understand. Since falling on the , patient has, just been sitting there. Prior to the fall, she could take only a few steps. She has been very quiet with minimal discussions since the fall. Plan for evaluation with CT for possible intracranial hemorrhage. Also considered possible metabolic source. As patient was recently admitted for AMS associated with medications, will also discuss medications further. Labs reviewed. No leukocytosis, stable H&H. Creatinine elevated, she was recently elevated as well. Is receiving some fluids here. No UTI. Son, Ayo, at bedside [phone]. He reports that she appears to be fairly baseline. States she may be a little quieter than normal but that she is overall unchanged from when he saw her last. FINDINGS: Brain: Age-related involutional changes and chronic microvascular ischemic disease. Chronic lacunar infarcts involving the sommer radiata bilaterally. Chronic lacunar infarct involving the left basal ganglia. Chronic lacunar infarcts involving the cerebellar hemispheres bilaterally. No evidence for acute transcortical infarct. No mass effect or midline shift. No extra-axial collection. No acute intracranial hemorrhage. Basal cisterns are patent. Cerebral ventricles: No ventriculomegaly. Paranasal sinuses: Visualized sinuses are unremarkable. No fluid levels. Mastoid air cells: Visualized mastoid air cells are well aerated. Bones/joints: Unremarkable. No acute fracture. Soft tissues: Unremarkable. IMPRESSION: No evidence for acute transcortical infarct, acute intracranial hemorrhage, or mass effect. FINDINGS: Lungs: Clear lungs. Pleural spaces: No pneumothorax. No sizable pleural effusion. Heart/Mediastinum: No cardiomegaly. Bones/joints: Unremarkable. IMPRESSION: Clear lungs. Reviewed med rec. It appears that the patient's carbidopa levodopa was stopped. I spoke with nursing at the [facility] who confirmed this. Her carbidopa levodopa was actually stopped 1 day prior to the onset of her symptoms. Her medication was stopped on 01/08/2021. Her fall was on 01/09/2021. Her progression of symptoms have been associated with the fall. However, as she does appear tremulous and generally weak, I am wondering if this is actually expression of her Parkinson's that had been previously were controlled with carbidopa levodopa. I advised that they discuss this further with the primary care, it is unclear to this provider why this medication was stopped and may have been stopped for good reason. I am hoping that a more investigative look by the primary care can be taken on the patient's medication regimen. Discussed findings here totday at [facility] with patient and family, verne are in agreement with this plan. HPI General Mode of arrival: EMS. Date/Time Provider Initiated Documentation: 01/13/21 11:25. Limitations to Documentation: no limitations (patient is quiet but able to answer questions, not overly forthcoming). Information obtained by: patient, family, RN/MD (spoke with nurse at [facility]), EMS, RN notes reviewed and old records reviewed. HPI Narrative: Patient is a pleasant 80-year-old female presenting today with chief complaint of altered mental status. Per [facility] staff and EMS, patient fell on 01/09/2021. Since then, she has been steadily declining and has been limited in her speech and interactions. They state that this is atypical for her. Prior to this decline, patient has also been admitted for altered mental status. At that time, it was thought to be medication induced no medication alterations have been made. Patient is not able to report her daily medications to me. She denies any pain. Initially had reported chest pain after the fall on 01/09/2021 at the [facility] reports that this only lasted a few days after the fall. Patient denies feeling short of breath. She denies any headache. Has not had any nausea or vomiting. No fevers or chills. Related Data Home Medications Medication Instructions Recorded Confirmed acetaminophen 650 mg PO Q6H PRN 01/01/21 01/13/21 ascorbic acid (vitamin C) 500 mg PO BID 01/01/21 01/13/21 carbidopa-levodopa 1 tab PO TID 01/01/21 01/13/21 carboxymethylcellulose sodium 1 drp OPHTHALMIC (EYE) HS 01/01/21 01/13/21 [Refresh Tears] cyanocobalamin (vitamin B-12) 1,000 mcg PO DAILY 01/01/21 01/13/21 duloxetine 60 mg PO BID 01/01/21 01/13/21 ferrous sulfate 325 mg PO BID 01/01/21 01/13/21 folic acid 1 mg PO DAILY 01/01/21 01/13/21 lorazepam [Ativan] 1 mg PO TID 01/01/21 01/13/21 quetiapine [Seroquel] 200 mg PO QHS 01/01/21 01/13/21 B12 Active 1,000 mcg PO DAILY 01/13/21 01/13/21 duloxetine 60 mg PO BID 01/13/21 01/13/21 olanzapine [Zyprexa] 10 mg PO DAILY 01/13/21 01/13/21 Allergies Allergy/AdvReac Type Severity Reaction Status Date / Time clarithromycin Allergy Unverified 01/13/21 11:25 mold Allergy Unverified 01/13/21 11:25 General ESPERANZA: 2 Review of Systems Constitutional Constitutional: Reports as per HPI, Denies chills, Denies fever(s) and Denies headache(s) Eyes Eyes: Denies change in vision ENT Ears, Nose, Mouth, and Throat: Denies dizziness and Denies headache(s) Cardiovascular Cardiovascular: Reports as per HPI, Denies dyspnea and Denies dyspnea on exertion Respiratory Respiratory: Reports as per HPI, Denies cough, Denies dyspnea and Denies dyspnea on exertion Gastrointestinal Gastrointestinal: Reports as per HPI, Denies abdominal pain, Denies diarrhea, Denies nausea and Denies vomiting Musculoskeletal Musculoskeletal: Reports as per HPI and Denies back pain Integumentary/Breasts Skin/Breast: Reports as per HPI and Denies rash Neurologic Neurologic: Reports as per HPI, Denies dizziness and Denies headache(s) PFSH Medical History Anemia Parkinson's disease Social History Smoking/Tobacco Use Status: Unknown Smoking risk assessment performed?: Yes Alcohol Intake: never Substance use type: does not use Additional Social history: unable to assess. Exam Const General: cooperative, comfortable, no acute distress, well developed and ill appearing chronically Nutritional Appearance: average body habitus and well nourished Orientation: alert, awake, oriented to person and oriented to place HENNC Head: normal to inspection Ears: hearing grossly abnormal bilaterally ([place]) Face and sinus: normal facial exam Resp Effort & Inspection: normal respiratory effort, able to speak in complete sentences and no respiratory distress Auscultation: clear to auscultation bilaterally, no rales, no rhonchi and no wheezes Cardio Rate: regular rate Rhythm: regular rhythm Heart Sounds: S1 normal and S2 normal GI Inspection: normal to inspection, no edema and non-distended Palpation: soft, no hepatosplenomegaly, not firm, no guarding, not rigid and nontender Auscultation: normal bowel sounds Back/Spine/Pelvis Back: no CVA tenderness Thoracic/Lumbar Spine: thoracic and lumbar spine normal to inspection Skin General skin exam: no rashes or lesions noted Trauma: no lacerations or abrasions Neuro General: patient alert, patient awake, oriented Patient Orientation: Person and Place and CN's II-XI intact bilaterally Cranial Nerves: CN's II-XI intact bilaterally Cognition: normal cognition Speech: speech normal Motor: no pronator drift, no movement abnormalities noted, tremor (BUE, R>L) and muscle tone abnormal (generally weak, difficulty holding up BLE, equal bilatearlly) Sensory Exam: no sensory deficits noted Coordination: [id number] test normal Extrem General: normal to inspection, capillary refill normal, no pedal edema, no calf tenderness and other (2+ distal pulses) Psych Appearance: grossly normal and well kempt Mental Status: mental status grossly normal Speech and Movement: speech and movement normal
--- NOTE | 2021-01-13 11:15 | RT.EKG_ITS ---
APPROVED REPORT Exam: Resting ECG Reason for Exam: cardiac history Patient Location: E HR:116 bpm ECG Measurements Heart Rate 116 AXIS FL 136 P 72 QRSd 90 QRS 56 QT 336 T 207 QTc 468 Conclusion Sinus tachycardia...rate> 99 Ventricular premature complex...V complex w/ short R-R interval. P waves visible. Sinus. PVCs. No STEMI. I have reviewed and interpreted ECG and agree with software generated interpretation.
--- NOTE | 2021-01-13 11:15 | DI.CT_ITS ---
Exam(s) CT HEAD WO EXAM: CT HEAD WO CLINICAL HISTORY: AMS, fall a few days ago. TECHNIQUE: Imaging Protocol: Axial computed tomography images with coronal and sagittal reformatted images were created and reviewed COMPARISON: CT CT HEAD CERV SPINE FACIAL WO from 01/01/2021 FINDINGS: Ventricles and Extra axial spaces: Normal in size and morphology for the patient's age. Hemorrhage: None. Cerebral parenchyma: Atrophy and bilateral lacunar infarcts. No visual acute infarct. Midline shift: None. Brainstem/Cerebellum: Normal. Calvarium: Normal. Visualized Paranasal sinuses/Mastoids: Clear. Soft Tissues: Unremarkable. IMPRESSION: No acute intracranial process. RADIATION DOSE DELIVERED: 807.48mGy.cm Total DLP DATA REPOSITORY: All CT scans at this facility are submitted to the National Radiology Data Registry (NRDR) Dose Index Registry (DIR) with the [employer] (A[employer]). RADIATION OPTIMIZATION: All CT scans at this facility use at least one of these dose optimization te chniques: automated exposure control; mA and/or kV adjustment per patient size (includes targeted exa ms where dose is matched to clinical indication); or iterative reconstruction.
[2021-01-13 11:16] VITALS: BP 121/79; PULSE 100; RESP 16; TEMP 36.4; O2SAT 94
--- NOTE | 2021-01-13 11:25 | DI.RAD_ITS ---
Exam(s) XR CHEST 2V PA LATERAL EXAM: XR CHEST 2V PA LATERAL CLINICAL HISTORY: AMS TECHNIQUE: 2D digital imaging was performed. COMPARISON: CR,XR XR PORTABLE CHEST AP POST LINE from 01/01/2021 FINDINGS: Elevated right diaphragm. HEART: Normal. PULMONARY VASCULATURE: Normal. LUNGS: Clear. PLEURAL SPACE: No pleural effusion or pneumothorax. BONE:Degenerative disc changes, unremarkable for age. Degenerative changes right shoulder. IMPRESSION: No acute abnormality. DATA REPOSITORY: RADIATION DOSE DELIVERED:
[2021-01-13 11:30] VITALS: RESP 16
[2021-01-13 12:16] LABS: Abs Immature Grans 0.04 10^3/uL (0.0-0.06); Absolute Basophil Count 0.03 10^3/uL (0.0-0.2); Absolute Eosinophil Count 0.02 10^3/uL (0.0-0.7); Absolute Lymphocyte Count 0.77 10^3/uL (1.2-3.4); Absolute Monocyte Count 0.86 10^3/uL (0.1-0.8); Absolute Neutrophil Count 9.08 10^3/uL (1.2-6.7); Basophils % 0.3; Eosinophils % 0.2; HCT 42.8 % (36.0-46.0); HGB 12.9 g/dL (11.2-15.7); Immature Grans % 0.4; Lymphocytes % 7.1; MCH 25.2 pg (27.0-33.0); MCHC 30.1 % (32.0-36.0); MCV 83.6 fL (80-95); MPV 10.7 fL (8.0-11.0); Nucleated RBC 0 %; Platelet Count 381 10^3/uL (130-400); RBC 5.12 10^6/uL (3.93-5.22); RDW 21.6 % (11.7-14.6)
[2021-01-13 12:29] LABS: Anisocytosis 1+; Diff Comment Diff Reviewed
[2021-01-13 12:35] LABS: Ammonia < 10 umol/L (11-32)
[2021-01-13 12:37] LABS: INR 1.1 (0.9-1.1); Prothrombin Time 11.1 sec (9.3-11.0)
[2021-01-13 12:38] LABS: Bilirubin Small (Negative); Blood Negative (Negative); Clarity Sl Cloudy (Clear); Glucose Negative (Negative); Ketones 40 mg/dL (Negative); Leukocyte Esterase Negative (Negative); Nitrite Negative (Negative); Specific Gravity 1.025 (1.005-1.025)
[2021-01-13 12:39] LABS: ALT 18 U/L (14-59); AST 16 U/L (15-37); Albumin 3.8 g/dL (3.4-5.0); Alkaline Phosphatase 121 U/L (46-116); BUN 22 mg/dL (7-18); Bilirubin, Total 0.6 mg/dL (0.2-1.0); CREATININE 1.3 mg/dL (0.55-1.02); Calcium 10.2 mg/dL (8.5-10.1); Chloride 105 mmol/L (98-107); Estimated GFR 39.51 (mL/min/1.73m2); Glucose 103 mg/dL (74-106); Magnesium 1.8 mg/dL (1.8-2.4); Potassium 4.3 mmol/L (3.5-5.1); Sodium 142 mmol/L (136-145); TSH (W/Ref FT4) 1.28 uIU/mL (0.36-3.74); Total Protein 7.4 g/dL (6.4-8.2); Troponin I < 0.05 ng/mL (<0.06)
[2021-01-13 12:46] LABS: Bacteria Negative HPF (Negative); C & S Indicated? No; Casts 0-2 Hyaline LPF (Negative); Crystals Negative HPF (Negative); Epithelial Cells Rare HPF (Negative); Mucus Negative (Negative); RBC Negative HPF (0-2); WBC Negative HPF (0-5)
--- NOTE | 2021-01-13 12:59 | DI.VRAD_ITS ---
PROCEDURE INFORMATION: Exam: XR Chest Exam date and time: 01/13/2021 12:47 PM Age: 80 years old Clinical indication: AMS, fall a couple days ago TECHNIQUE: Imaging protocol: XR of the chest. Views: 2 views. COMPARISON: CR XR PORTABLE CHEST AP POST LINE 01/01/2021 8:58 PM FINDINGS: Lungs: Clear lungs. Pleural spaces: No pneumothorax. No sizable pleural effusion. Heart/Mediastinum: No cardiomegaly. Bones/joints: Unremarkable. IMPRESSION: Clear lungs. Dictated and Authenticated by: Rashaad Costello MD. Ordering:LC Ramachandran MD
--- NOTE | 2021-01-13 13:01 | DI.VRAD_ITS ---
PROCEDURE INFORMATION: Exam: CT Head Without Contrast Exam date and time: 01/13/2021 11:27 AM Age: 80 years old Clinical indication: AMS, fall a few days ago TECHNIQUE: Imaging protocol: Computed tomography of the head without contrast. Radiation optimization: All CT scans at this facility use at least one of these dose optimization techniques: automated exposure control; mA and/or kV adjustment per patient size (includes targeted exams where dose is matched to clinical indication); or iterative reconstruction. COMPARISON: CT HEAD CERV SPINE FACIAL WO 01/01/2021 9:41 PM FINDINGS: Brain: Age-related involutional changes and chronic microvascular ischemic disease. Chronic lacunar infarcts involving the sommer radiata bilaterally. Chronic lacunar infarct involving the left basal ganglia. Chronic lacunar infarcts involving the cerebellar hemispheres bilaterally. No evidence for acute transcortical infarct. No mass effect or midline shift. No extra-axial collection. No acute intracranial hemorrhage. Basal cisterns are patent. Cerebral ventricles: No ventriculomegaly. Paranasal sinuses: Visualized sinuses are unremarkable. No fluid levels. Mastoid air cells: Visualized mastoid air cells are well aerated. Bones/joints: Unremarkable. No acute fracture. Soft tissues: Unremarkable. IMPRESSION: No evidence for acute transcortical infarct, acute intracranial hemorrhage, or mass effect. Dictated and Authenticated by: Rashaad Costello MD. Ordering:LC Ramachandran MD
[2021-01-13 13:24] LABS: Source Nasal/Nares
[2021-01-13] MEDS: Normal Saline 1,000 ML 125 ML IV (13:56)
[2021-01-13 14:16] LABS: COVID-19 PCR Negative (Negative)
[2021-01-13 15:04] VITALS: BP 166/79; PULSE 104; RESP 18; TEMP 36.4; O2SAT 96
== END 2021-01-13 15:09 | disposition skilled nursing facility (03) ==
PROVIDERS: Emergency Provider Physician Assistant
DX: E86.0 Dehydration (principal); R53.1 Weakness; G20 Parkinson's disease; Z20.822 Contact with and (suspected) exposure to COVID-19; Z03.818 Encounter for observation for suspected exposure to other biological agents ruled out; R07.9 Chest pain, unspecified
CPT/HCPCS: 36415; 80053; 87635; 93005; 96360; 99285; 70450; 71046; 81003; 81015; 82140; 83735; 84443; 84484; 85025; 85610; 93010; 99284

== ENCOUNTER 2021-03-06 03:10 | Outpatient (REF) | payer MEDICARE, SELFPAY ==
[2021-03-05 19:05] LABS: Abs Immature Grans 0.01 10^3/uL (0.0-0.06); Absolute Basophil Count 0.04 10^3/uL (0.0-0.2); Absolute Eosinophil Count 0.11 10^3/uL (0.0-0.7); Absolute Lymphocyte Count 1.57 10^3/uL (1.2-3.4); Absolute Monocyte Count 0.69 10^3/uL (0.1-0.8); Absolute Neutrophil Count 4.01 10^3/uL (1.2-6.7); Basophils % 0.6; Eosinophils % 1.7; HCT 42.2 % (36.0-46.0); HGB 13.4 g/dL (11.2-15.7); Immature Grans % 0.2; Lymphocytes % 24.4; MCHC 31.8 % (32.0-36.0); MCV 88.1 fL (80-95); MPV 11.9 fL (8.0-11.0); Monocytes % 10.7; Neutrophils % 62.4; Nucleated RBC 0 %; Platelet Count 232 10^3/uL (130-400); RBC 4.79 10^6/uL (3.93-5.22); RDW 18.2 % (11.7-14.6); RDW-SD 58.9 fL; WBC 6.43 10^3/uL (4.4-10.8)
[2021-03-05 19:32] LABS: Iron 48 ug/dL (50-170)
[2021-03-05 19:59] LABS: Anion Gap 7.7 mmol/L (3-11); BUN 16 mg/dL (7-18); CO2 28.3 mmol/L (21.0-32.0); Calcium 9.1 mg/dL (8.5-10.1); Chloride 106 mmol/L (98-107); Estimated GFR 53.48 (mL/min/1.73m2); Glucose 98 mg/dL (74-106); Potassium 4.3 mmol/L (3.5-5.1); Sodium 142 mmol/L (136-145); Vitamin B12 379 pg/mL (193-986)
[2021-03-05 20:10] LABS: Folate > 20.0 ng/mL (8.6-20.0)
== END 2021-03-06 03:11 | disposition home or self-care (01) ==
LOC: LBN 03:10
PROVIDERS: Visit Provider Internal Medicine
DX: D64.9 Anemia, unspecified (principal); I10 Essential (primary) hypertension; F33.40 Major depressive disorder, recurrent, in remission, unspecified; G20 Parkinson's disease; F02.81 Dementia in other diseases classified elsewhere, unspecified severity, with behavioral disturbance
CPT/HCPCS: 80048; 82607; 82746; 83540; 85025

== ENCOUNTER 2022-01-14 16:30 | Outpatient (REF) | payer MEDICARE, MEDICAID, SELFPAY ==
[2022-01-14 18:10] LABS: Abs Immature Grans 0.01 10^3/uL (0.0-0.06); Absolute Basophil Count 0.04 10^3/uL (0.0-0.2); Absolute Eosinophil Count 0.14 10^3/uL (0.0-0.7); Absolute Lymphocyte Count 1.34 10^3/uL (1.2-3.4); Absolute Neutrophil Count 4.83 10^3/uL (1.2-6.7); Basophils % 0.6; HGB 14.6 g/dL (11.2-15.7); Immature Grans % 0.1; Lymphocytes % 18.7; MCH 32.2 pg (27.0-33.0); MCHC 33.2 % (32.0-36.0); MCV 97 fL (80-95); MPV 11.9 fL (8.0-11.0); Monocytes % 11.2; Neutrophils % 67.4; Platelet Count 180 10^3/uL (130-400); RBC 4.54 10^6/uL (3.93-5.22); RDW 12.6 % (11.7-14.6); RDW-SD 44.3 fL; WBC 7.16 10^3/uL (4.4-10.8)
[2022-01-14 22:05] LABS: ALT 18 U/L (14-59); AST 22 U/L (15-37); Albumin 3.1 g/dL (3.4-5.0); Alkaline Phosphatase 73 U/L (46-116); Anion Gap 6.8 mmol/L (3-11); BUN 13 mg/dL (7-18); Bilirubin, Total 0.4 mg/dL (0.2-1.0); CO2 29.2 mmol/L (21.0-32.0); CREATININE 1.2 mg/dL (0.55-1.02); Calcium 9.2 mg/dL (8.5-10.1); Chloride 106 mmol/L (98-107); Estimated GFR 45.76 (mL/min/1.73m2); Glucose 91 mg/dL (74-106); Magnesium 1.6 mg/dL (1.8-2.4); Potassium 4.5 mmol/L (3.5-5.1); Sodium 142 mmol/L (136-145); TSH (W/Ref FT4) 1.75 uIU/mL (0.36-3.74); Total Protein 5.6 g/dL (6.4-8.2); Vitamin B12 395 pg/mL (193-986)
[2022-01-14 22:26] LABS: Folate > 20.0 ng/mL (8.6-20.0)
[2022-01-15 10:20] LABS: Vitamin D 25 Total 33.6 ng/mL (30-100)
[2022-01-15 10:28] LABS: Hemoglobin A1C 5.5 % (<5.7)
== END 2022-01-14 16:31 | disposition home or self-care (01) ==
LOC: LBN 16:30
PROVIDERS: PCP Family Medicine; Visit Provider Nurse Practitioner Gerontology
DX: R13.10 Dysphagia, unspecified (principal); G20 Parkinson's disease; G93.41 Metabolic encephalopathy; I10 Essential (primary) hypertension; D64.9 Anemia, unspecified; R53.1 Weakness; M62.81 Muscle weakness (generalized)
CPT/HCPCS: 80053; 82306; 82607; 82746; 83036; 83735; 84443; 85025

== ENCOUNTER 2022-02-26 18:19 | Outpatient (REF) | payer MEDICARE, MEDICAID, SELFPAY ==
[2022-02-26 17:55] LABS: Abs Immature Grans 0.02 10^3/uL (0.0-0.06); Absolute Basophil Count 0.02 10^3/uL (0.0-0.2); Absolute Eosinophil Count 0.17 10^3/uL (0.0-0.7); Absolute Monocyte Count 0.83 10^3/uL (0.1-0.8); Absolute Neutrophil Count 4.34 10^3/uL (1.2-6.7); Basophils % 0.3; Eosinophils % 2.5; HCT 41.7 % (36.0-46.0); HGB 14.3 g/dL (11.2-15.7); Immature Grans % 0.3; Lymphocytes % 19.5; MCH 32.4 pg (27.0-33.0); MCHC 34.3 % (32.0-36.0); MCV 94 fL (80-95); MPV 11.4 fL (8.0-11.0); Monocytes % 12.4; Platelet Count 178 10^3/uL (130-400); RBC 4.42 10^6/uL (3.93-5.22); RDW 11.9 % (11.7-14.6); WBC 6.68 10^3/uL (4.4-10.8)
[2022-02-26 18:24] LABS: Vitamin D 25 Total 38.2 ng/mL (30-100)
[2022-02-26 18:29] LABS: Magnesium 1.7 mg/dL (1.8-2.4); Vitamin B12 485 pg/mL (193-986)
[2022-02-26 18:30] LABS: Folate > 20.0 ng/mL (8.6-20.0)
== END 2022-02-26 18:20 | disposition home or self-care (01) ==
LOC: LBN 18:19
PROVIDERS: PCP Family Medicine; Visit Provider Nurse Practitioner Gerontology
DX: R68.89 Other general symptoms and signs (principal); J96.01 Acute respiratory failure with hypoxia; I10 Essential (primary) hypertension; D64.9 Anemia, unspecified
CPT/HCPCS: 82306; 82607; 82746; 83735; 85025

== ENCOUNTER 2022-03-18 18:54 | Outpatient (REF) | payer MEDICARE, MEDICAID, SELFPAY ==
[2022-03-19 08:39] LABS: Abs Immature Grans 0.05 10^3/uL (0.0-0.06); Absolute Basophil Count 0.04 10^3/uL (0.0-0.2); Absolute Eosinophil Count 0.12 10^3/uL (0.0-0.7); Absolute Lymphocyte Count 1.04 10^3/uL (1.2-3.4); Absolute Monocyte Count 1.07 10^3/uL (0.1-0.8); Basophils % 0.3; HCT 43.2 % (36.0-46.0); HGB 14.5 g/dL (11.2-15.7); Immature Grans % 0.4; Lymphocytes % 8.8; MCH 31.8 pg (27.0-33.0); MCHC 33.6 % (32.0-36.0); MCV 95 fL (80-95); MPV 12.2 fL (8.0-11.0); Monocytes % 9.1; Neutrophils % 80.4; Platelet Count 176 10^3/uL (130-400); RBC 4.56 10^6/uL (3.93-5.22); RDW 11.9 % (11.7-14.6); RDW-SD 41.8 fL
[2022-03-19 08:43] LABS: Absolute Neutrophil Count 9.49 10^3/uL (1.2-6.7)
[2022-03-19 09:17] LABS: Iron 41 ug/dL (50-170)
[2022-03-19 09:44] LABS: ALT 14 U/L (14-59); AST 14 U/L (15-37); Albumin 3.1 g/dL (3.4-5.0); Alkaline Phosphatase 83 U/L (46-116); Anion Gap 6.5 mmol/L (3-11); BUN 18 mg/dL (7-18); Bilirubin, Total 0.4 mg/dL (0.2-1.0); CO2 29.5 mmol/L (21.0-32.0); CREATININE 1.1 mg/dL (0.55-1.02); Calcium 9.2 mg/dL (8.5-10.1); Chloride 106 mmol/L (98-107); Glucose 151 mg/dL (74-106); Magnesium 1.8 mg/dL (1.8-2.4); Potassium 4.1 mmol/L (3.5-5.1); Sodium 142 mmol/L (136-145); TSH (W/Ref FT4) 2.17 uIU/mL (0.36-3.74); Total Protein 5.4 g/dL (6.4-8.2); Vitamin B12 459 pg/mL (193-986)
[2022-03-19 13:29] LABS: Total Iron Binding Capacity 236 ug/dL (250-450); Transferrin Sat 17 % (15-50)
[2022-03-19 13:44] LABS: Ferritin 193 ng/mL (8-252)
[2022-03-19 18:08] LABS: Folate >24.0 ng/mL (See Note)
== END 2022-03-18 18:55 | disposition home or self-care (01) ==
LOC: LBN 18:54
PROVIDERS: PCP Family Medicine; Visit Provider Nurse Practitioner Gerontology
DX: D64.9 Anemia, unspecified (principal); D51.0 Vitamin B12 deficiency anemia due to intrinsic factor deficiency; R68.89 Other general symptoms and signs; J96.01 Acute respiratory failure with hypoxia; I10 Essential (primary) hypertension
CPT/HCPCS: 80053; 82607; 82728; 82746; 83540; 83550; 83735; 84443; 85025

== ENCOUNTER 2022-03-26 18:10 | Outpatient (REF) | payer MEDICARE, MEDICAID, SELFPAY ==
[2022-03-26 18:19] LABS: Abs Immature Grans 0.02 10^3/uL (0.0-0.06); Absolute Basophil Count 0.02 10^3/uL (0.0-0.2); Absolute Lymphocyte Count 0.93 10^3/uL (1.2-3.4); Absolute Monocyte Count 0.67 10^3/uL (0.1-0.8); Absolute Neutrophil Count 4.38 10^3/uL (1.2-6.7); Basophils % 0.3; Eosinophils % 1.6; HGB 13.9 g/dL (11.2-15.7); Immature Grans % 0.3; Lymphocytes % 15.2; MCH 31.4 pg (27.0-33.0); MCHC 33.9 % (32.0-36.0); MCV 93 fL (80-95); MPV 11.7 fL (8.0-11.0); Monocytes % 10.9; Neutrophils % 71.7; Platelet Count 181 10^3/uL (130-400); RBC 4.43 10^6/uL (3.93-5.22); RDW 12.1 % (11.7-14.6); RDW-SD 41.5 fL; WBC 6.12 10^3/uL (4.4-10.8)
== END 2022-03-26 18:11 | disposition home or self-care (01) ==
LOC: LBN 18:10
PROVIDERS: PCP Family Medicine; Visit Provider Nurse Practitioner Gerontology
DX: D64.9 Anemia, unspecified; I10 Essential (primary) hypertension
CPT/HCPCS: 85025